=== PATIENT | male | born 1950 | race Caucasian/White ===

== ENCOUNTER 2023-11-09 13:26 | Outpatient (AMB) | payer MEDICARE, SELFPAY ==
[2023-11-09 13:41] VITALS: BP 120/62; PULSE 63; O2SAT 96; BMI 25.0
--- NOTE | 2023-11-09 13:41 | HO.NEPHOV_ITS ---
HPI HPI Comments History of Present Illness Details I had the privilege of seeing Rober in follow-up of his chronic kidney disease as well as renal cysts. He has history of atrial fibrillation and has undergone ablations. In the past he had a calcium score testing of his coronaries, during which the radiologist noted a spot in the lung. It led to more investigations including abdominal CT which showed renal cysts. His serum creatinine has been fairly stable but his paraprotein in the blood has been going high. He has not a diabetic. He has no family history of renal disease, ESRD or renal transplantation. He denies any congestive heart failure symptoms, chest pain, peripheral arterial disease. His blood pressure has been well controlled. Does not take any excessive nonsteroidal anti-inflammatory medications. Has history of prostate cancer in the past and has undergone prostatectomy. Had no other systemic complaints but his is quite concerned about his paraprotein levels going up. He has no new bone or back pain or high calcium levels. [facility] Medical History (Updated 11/17/23 @ 14:00 by Soyn Winkler MD) Paroxysmal A-fib Osteopenia Mixed hyperlipidemia Hypothyroidism Generalized anxiety disorder DJD (degenerative joint disease) Acromioclavicular joint arthritis Renal cyst Chronic kidney disease, stage 3a Surgical History (Updated 11/09/23 @ 13:37 by Jo Lock MA) H/O shoulder surgery H/O prostatectomy H/O knee surgery History of hernia repair S/P ablation of atrial fibrillation History of abdominal surgery Family History (Updated 11/09/23 @ 13:38 by Jo Lock MA) Mother Liver cancer Father Lung cancer Paternal Grandmother Stroke Social History (Updated 11/09/23 @ 13:38 by Jo Lock MA) Alcohol intake: current Patient Tobacco Use Status: Never used Tobacco Vital Signs 11/09/23 13:41 Height 5 ft 11 in Weight 179 lb 4 oz BMI 25.0 BP 120/62 Blood Pressure Location Lt brachial Position Sitting Pulse 63 Pulse Source Pulse Oximeter Pulse Oximetry (%) 96 Oxygen Delivery Method Room Air Physical Exam Vital Signs: Last Vital Signs Pulse 63 11/09/23 13:41 BP 120/62 11/09/23 13:41 Pulse Ox 96 11/09/23 13:41 Oxygen Delivery Method Room Air 11/09/23 13:41 BMI result Body Mass Index 25.0 Const General: comfortable and no acute distress Orientation/consciousness: patient oriented x3 HEENT Head: Yes normocephalic Mouth: Normal oral and palatal mucosa present Eyes EOM: EOMs intact bilaterally Neck Neck: Yes supple Resp Auscultation: clear to auscultation bilaterally Cardio Jugular venous distension: no JVD Rate: regular rate GI Palpation (GI): Soft to palpation Auscultation: normal bowel sounds General: Yes no CVA tenderness Back/Spine/Pelvis Back: no CVA tenderness Skin General skin exam: no rashes or lesions noted Neuro General: patient oriented x3 and moves all extremities Extrem General: Yes no pedal edema Assessment & Plan Assessment & Plan (1) CKD (chronic kidney disease) stage 3, GFR 30-59 ml/min: Code(s): N18.30 - Chronic kidney disease, stage 3 unspecified Qualifiers: Chronic kidney disease stage 3 subtype: stage 3a (GFR 45-59) Qualified Code(s): N18.31 - Chronic kidney disease, stage 3a (2) Renal cyst: Code(s): N28.1 - Cyst of kidney, acquired (3) Paraproteinemia: Code(s): D89.2 - Hypergammaglobulinemia, unspecified Plan He has stage III CKD at baseline. His renal functions have been stable over the last 5 years. He has renal cysts by imaging. 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 He has no family history of polycystic kidney disease. He has no hematuria or proteinuria now. He has paraproteinemia and is quite concerned about it. Living in [place], he wanted to see a machinist helper somewhere in [place]. I took the liberty to refer him to Brie Drake MD in [facility]. I did not make any medication changes today. I plan to image his kidneys after the next visit. He maintains good hydration and does not use excess nonsteroidal anti- inflammatories. All his and his 's questions were answered. Follow-up lab work ordered and follow-up appointment given. Orders: Orders Parathyroid Hormone Intact 11/09/23 N28.1 - Cyst of kidney, acquired, N18.30 - Chronic kidney disease, stage 3 unspecified Calcium 11/09/23 N28.1 - Cyst of kidney, acquired, N18.30 - Chronic kidney disease, stage 3 unspecified Vitamin D 25-OH Total 11/09/23 N28.1 - Cyst of kidney, acquired, N18.30 - Chronic kidney disease, stage 3 unspecified Phosphorus 11/09/23 N28.1 - Cyst of kidney, acquired, N18.30 - Chronic kidney disease, stage 3 unspecified Electrolytes 11/09/23 N28.1 - Cyst of kidney, acquired, N18.30 - Chronic kidney disease, stage 3 unspecified Blood Urea Nitrogen 11/09/23 N28.1 - Cyst of kidney, acquired, N18.30 - Chronic kidney disease, stage 3 unspecified Creatinine 11/09/23 N28.1 - Cyst of kidney, acquired, N18.30 - Chronic kidney disease, stage 3 unspecified Coding Level of Care Code Est Pt Level 4 (42707) Diagnoses Stage 3a chronic kidney disease N18.31 Chronic kidney disease stage 3 subtype: stage 3a (GFR 45-59) Renal cyst N28.1 Paraproteinemia D89.2 Results Reviewed Nephrology Results: No Data to Display
== END 2023-11-09 14:29 | disposition home or self-care (01) ==
PROVIDERS: PCP Physician Assistant Medical; Visit Provider Internal Medicine Nephrology
DX: N18.31 Chronic kidney disease, stage 3a (principal); N28.1 Cyst of kidney, acquired; D89.2 Hypergammaglobulinemia, unspecified
CPT/HCPCS: 99214

== ENCOUNTER → 2023-11-09 13:26 | Outpatient (BNVA) | payer MEDICARE, SELFPAY | PROVIDERS: PCP Physician Assistant Medical; Visit Provider Internal Medicine Nephrology | DX: N18.31 Chronic kidney disease, stage 3a (principal); N28.1 Cyst of kidney, acquired; D89.2 Hypergammaglobulinemia, unspecified | CPT/HCPCS: 99212 ==

== ENCOUNTER 2024-06-18 10:53 | Outpatient (AMB) | payer MEDICARE, SELFPAY ==
--- NOTE | 2024-06-18 11:04 | HO.NEPHOV_ITS ---
Vital Signs 06/18/24 11:05 Height 5 ft 11 in Weight 176 lb 4 oz BMI 24.6 BP 114/70 Blood Pressure Location Lt brachial Position Sitting Pulse 64 Pulse Source Pulse Oximeter Pulse Oximetry (%) 97 Oxygen Delivery Method Room Air Intake Visit Reasons: 8 mon follow up- [facility] Director [employer] Required: No Accompanied by: Spouse Allergies No Known Allergies Allergy (Verified 06/18/24 11:07) HPI Comments Details: I had the privilege of seeing Rober in follow-up of his chronic kidney disease as well as renal cysts. He has history of atrial fibrillation and has undergone ablations. In the past he had a calcium score testing of his coronaries, during which the radiologist noted a spot in the lung. It led to more investigations including abdominal CT which showed renal cysts. His serum creatinine has been fairly stable but his paraprotein in the blood has been going high for which he has seen a fiberglass model maker. He has not a diabetic. He has no family history of renal disease, ESRD or renal transplantation. He denies any congestive heart failure symptoms, chest pain, peripheral arterial disease. His blood pressure has been well controlled. Does not take any excessive nonsteroidal anti- inflammatory medications. Has history of prostate cancer in the past and has undergone prostatectomy. He has no new bone or back pain or high calcium levels. [facility] Medical History (Updated 11/17/23 @ 14:00 by Sony Winkler MD) Paroxysmal A-fib Osteopenia Mixed hyperlipidemia Hypothyroidism Generalized anxiety disorder DJD (degenerative joint disease) Acromioclavicular joint arthritis Renal cyst Chronic kidney disease, stage 3a Surgical History H/O shoulder surgery H/O prostatectomy H/O knee surgery History of hernia repair S/P ablation of atrial fibrillation History of abdominal surgery Family History Mother Liver cancer Father Lung cancer Paternal Grandmother Stroke Social History Alcohol intake: current Patient Tobacco Use Status: Never used Tobacco Physical Exam Vital Signs: Last Vital Signs Pulse 64 06/18/24 11:05 BP 114/70 06/18/24 11:05 Pulse Ox 97 06/18/24 11:05 Oxygen Delivery Method Room Air 06/18/24 11:05 BMI result Body Mass Index 24.6 Const General: comfortable and no acute distress Orientation/consciousness: patient oriented x3 HEENT Head: Yes normocephalic Mouth: Normal oral and palatal mucosa present Eyes EOM: EOMs intact bilaterally Neck Neck: Yes supple Resp Auscultation: clear to auscultation bilaterally Cardio Jugular venous distension: no JVD Rate: regular rate GI Palpation (GI): Soft to palpation Auscultation: normal bowel sounds General: Yes no CVA tenderness Back/Spine/Pelvis Back: no CVA tenderness Skin General skin exam: no rashes or lesions noted Neuro General: patient oriented x3 and moves all extremities Extrem General: Yes no pedal edema Results Reviewed Nephrology Results: No Data to Display Assessment & Plan Assessment & Plan (1) CKD (chronic kidney disease) stage 3, GFR 30-59 ml/min: Code(s): N18.30 - Chronic kidney disease, stage 3 unspecified Category: Medical Qualifiers: Chronic kidney disease stage 3 subtype: stage 3a (GFR 45-59) Qualified Code(s): N18.31 - Chronic kidney disease, stage 3a (2) Renal cyst: Code(s): N28.1 - Cyst of kidney, acquired Category: Medical (3) 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 His renal functions have been stable over the last 5 years. He has renal cysts by imaging. 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 He has no family history of polycystic kidney disease. He has no hematuria or proteinuria now. He is seeing Brie Drake MD in [facility] for paraproteinemia. I did not make any medication changes today. I plan to image his kidneys after the next visit. He maintains good hydration and does not use excess nonsteroidal anti-inflammatories. All his and his 's questions were answered. Follow-up lab work ordered and follow-up appointment given Orders: Orders Calcium Today D89.2 - Hypergammaglobulinemia, unspecified, N18.31 - Chronic kidney disease, stage 3a, N28.1 - Cyst of kidney, acquired Creatinine Today D89.2 - Hypergammaglobulinemia, unspecified, N18.31 - Chronic kidney disease, stage 3a, N28.1 - Cyst of kidney, acquired Blood Urea Nitrogen Today D89.2 - Hypergammaglobulinemia, unspecified, N18.31 - Chronic kidney disease, stage 3a, N28.1 - Cyst of kidney, acquired Electrolytes Today D89.2 - Hypergammaglobulinemia, unspecified, N18.31 - Chronic kidney disease, stage 3a, N28.1 - Cyst of kidney, acquired Coding Level of Care Code Est Pt Level 4 (00329) Diagnoses Stage 3a chronic kidney disease N18.31 Chronic kidney disease stage 3 subtype: stage 3a (GFR 45-59) Renal cyst N28.1 Paraproteinemia D89.2
[2024-06-18 11:05] VITALS: BP 114/70; PULSE 64; O2SAT 97; BMI 24.6
== END 2024-06-18 11:40 | disposition home or self-care (01) ==
PROVIDERS: PCP Physician Assistant Medical; Visit Provider Internal Medicine Nephrology
DX: N18.31 Chronic kidney disease, stage 3a (principal); N28.1 Cyst of kidney, acquired; D89.2 Hypergammaglobulinemia, unspecified
CPT/HCPCS: 99214

== ENCOUNTER → 2024-06-18 10:53 | Outpatient (BNVA) | payer MEDICARE, SELFPAY | PROVIDERS: PCP Physician Assistant Medical; Visit Provider Internal Medicine Nephrology | DX: N18.31 Chronic kidney disease, stage 3a (principal); N28.1 Cyst of kidney, acquired; D89.2 Hypergammaglobulinemia, unspecified | CPT/HCPCS: 99212 ==

== ENCOUNTER 2025-06-17 10:14 | Outpatient (AMB) | payer MEDICARE, SELFPAY ==
--- OUTSIDE RECORDS SUMMARY | 2024-07-30 13:17 | XMS_ITS | Encounter Summary ---
Author Organization [facility] Address [address] [place] [address] Care Team Providers Care Senior Game Developer Name Role Phone Licha Amin Primary Care Provider [phone] Encounter Details Date Type Department Care Team (Late st Contact Info) Description 07/30/2024 1:17 PM EDT Hospital Encounter TH HISTORIC ENCOUNTERS [facility] ONLY Licha Amin PA [address] [place] [id number] Social History Tobacco Use Types Packs/Day Years Used Date Smoking Tobacco: Never Smokeless Tobacco: Never Alcohol Use Standard Drinks/Week Comments Yes 0 (1 standard drink = 0.6 oz pur e alcohol) Sex and Gender Information Value Date Recorded Sex Assigned at Not on file Legal Sex Male 5:49 AM EST Gender Identity Not on file Sexual Orientation Not on file documented as of this encounter Last Filed Vital Signs Vital Sign Reading Time Taken Comments Blood Pressure 146/82 07/30/2024 1:20 PM EDT Pulse 72 07/30/2024 1:20 PM EDT Temperature - - Respiratory Rate - - Oxygen Saturation - - Inhaled Oxygen Concentration - - Weight 81.2 kg (179 lb) 07/30/2024 1:20 PM EDT Height 182.2 cm (5' 11.75 ) 07/20/2022 1:22 PM E DT Body Mass Index 24.45 07/20/2022 1:22 PM EDT documented in this encounter Progress Notes * HANS Alejandre - 07/30/2024 1:15 PM EDT [facility] Colon cancer screening: Colonoscopy 07/16/2021, recheck 3 years (Les) Prostate cancer screening: Total prostatectomy 11/02/2007 Tetanus vaccination: Tdap 11/2021 Vaccinations reviewed BMD: See below ASCVD risk: On statin for primary prevention, followed by cardiology AAA: Negative on 02/11/2015 LDCT: Does not qualify based on smoking history Medicare annual wellness visit: 07/2024 Adv dir: 2022; is HCP, she is aware of his wishes [email or web address] Patient has a living will, he will bring a copy in for the chart Qflo 07/20/2022 0.82 right, 0.91 left 07/26/2023 0.92R, 0.77L Bilateral feet with normal distal capillary refill and no ulceration or signs of skin breakdown; continue aerobic exercise including walking URI-->sinusitis/bronchitis Flonase Zpack if persistent F/U INB Chronic pain B Achilles/ankles No inflammatory symptoms Requested referral to [facility], ordered Ortho INB Chronic cough, post nasal drip Cont f/u ENT Dr Jacobo Cont f/u pulm Russomano (also pulm nodules) H/O paroxysmal atrial fibrillation, h/o ablation x 4 Pure hypercholesterolemia Remote history of syncope CAC -0- at 06/09/2021 LDL 118, will forward to cardiology Dr. Ryan Continue routine follow-up with cardiology ?? CKD 3a Most recent creatinine normal F/U nephrology (Ag) ?? Hypothyroidism TSH??2.78 Continue levothyroxine 50 mcg daily, 2 on Sundays Recheck 1 year ?? Osteopenia* BMD 08/14/2023 RA compared to 03/29/2021 T -0.6 LS spine (previously -1.1) T -2.0 left femoral neck (previously -2.0) FRAX 05/17 Labs done 05/20/2019 (normal): Total testosterone, SPEP, celiac panel, TSH, PTH, phosphorus, vitamin D, 24-hour urine for calcium Repeat PTH vitamin D phosphorus renal function calcium normal 09/2023 History of Actonel use weekly, patient reports at least 2 years of medication (maybe more), discontinued by PCP so he would not stay on it too long Continue calcium, vitamin D, weightbearing exercise Discussed referral to endo, he will consider H/O fatty liver (abdom US NCI 07/20/2021) Normal LFTs No significant etoh Cont diet/exercise, statin, cardiovascular risk factor reduction History of prostate cancer Total prostatectomy 11/02/[address] Neville at [facility], he was discharged and considered cured Hypogammaglobulinemia Elevated serum free light chains Followed by hematology Anxiety disorder MDD, in remission Well-controlled on Lexapro 10 mg daily, continue He has Xanax for rescue medication if he has a panic attack or acute anxiety but he has not needed this Risks of long-term benzodiazepine use were detailed, including sedation, tolerance, overdose, , memory loss, reduced coordination, falls, withdrawal seizures. Osteoarthritis of multiple joints Status post bilateral shoulder surgery and bilateral arthroscopic knee surgery Patient gave up running and has not needed any chronic pain medication. He works out at the gym daily. Chief Complaint: Chief Complaint Patient presents with ??? Annual Exam Labs done ??? Subsequent Preventive Visit Medicare Done today HPI: Rober Duron is a 73 y.o. male. HPI Annual physical Quit smoking 50 years ago ( Renuka) Goes to the gym 5 days a week, does 40+ minutes of cardio plus weights The socialize outdoors with some friends of similar age PSH Cataracts OU Protatectomy, total Afib ablation x 4 Vitals: Vitals: 07/30/24 1320 BP: 146/82 Pulse: 72 SpO2: 97% Weight: 81.2 kg (179 lb) Body mass index is 24.45 kg/m??. Allergies: Allergies Allergen Reactions ??? Sulfa Antibiotics Rash Medications: Current Outpatient Medications Medication Sig Dispense Refill ??? ALPRAZolam (XANAX) 0.5 MG tablet Take 1 tablet (0.5 mg total) by mouth 2 (two) times a day as needed. 30 tablet 0 ??? aspirin 81 MG tablet Take 1 tablet (81 mg total) by mouth daily. ??? atorvastatin (LIPITOR) tablet 20 mg TAKE 1 TABLET BY MOUTH EVERY DAY IN THE EVENING 90 tablet 3 ??? Cyanocobalamin (B-12 PO) Take 2,500 Units by mouth daily. ??? escitalopram (LEXAPRO) tablet 10 mg Take 1 tablet (10 mg total) by mouth daily. For anxiety andmood 90 tablet 3 ??? levothyroxine (SYNTHROID) tablet 50 mcg Take 1 tablet (50 mcg total) by mouth daily. 90 tablet 3 ??? loratadine (CLARITIN) 10 MG tablet Take 1 tablet (10 mg total) by mouth. ??? magnesium (MAGTAB) 84 MG (7MEQ) TBCR Take 1 tablet (84 mg total) by mouth 2 (two) times a day. ??? Probiotic Product (PROBIOTIC-10 PO) Take by mouth. ??? Turmeric 1053 MG TABS Take by mouth. ??? VITAMIN D, ERGOCALCIFEROL, PO Take 2,000 Units by mouth daily. ??? zinc sulfate (ZINCATE) 220 (50 Zn) MG capsule Take 1 capsule (220 mg total) by mouth. ??? azithromycin (Zithromax Z-Roger) 250 MG tablet Take 2 tablets (500 mg) on Day 1, followed by 1 tablet (250 mg) once daily on Days 2 through 5. 6 tablet 0 ??? promethazine-dextromethorphan (PROMETHAZINE-DM) 6.25-15 MG/5ML syrup Take 5 mL by mouth 4 (four) times a day as needed for cough. 118 mL 0 No current facility-administered medications for this visit. Vaccines: Immunization History Administered Date(s) Administered ??? Boostrix (Tdap) 12/01/2021 ??? Covid-19 (Moderna 12+) Bivalent 50mcg/0.5mL 06/29/2022 ??? Covid-19 (Pfizer) Dilution Required 11/24/2020, 12/15/2020, 07/30/2021 ??? Hep A / Hep B 04/15/2016, 05/16/2016, 10/16/2016 Influenza Quad (Fluad) 0.5 mL >65Yrs (AIIV4) 06/20/2020, 06/24/2021 Influenza Quad (High Dose Fluzone) 0.7mL >65Yrs (HD-IIV4) 07/11/2018, 06/11/2019, 06/29/2022, 07/21/2023 ??? Influenza TIV (IM) (inactive) 07/23/2014 Influenza Trivalent (Fluzone High Dose) 0.7 mL (65yrs &>) 07/09/2024 ??? Influenza Trivalent (Fluzone/Afluria) 5.0mL Multi-dose Vial 07/23/2014 ??? Influenza Vaccine, Unspecified formulation 06/16/2020, 07/30/2021, 07/21/2023 ??? Pneumococcal Conjugate PCV13 04/01/2015, 04/01/2015 ??? Pneumococcal Polysaccharide PPSV23 12/26/2006, 07/11/2019 ??? RSV PreF3 (Arexvy) Adjuvant Reconstituted 0.5mL 60+ Yrs 08/07/2023 ??? Shingrix Vaccine (Zoster Recombinant) 06/11/2019, 08/13/2019 ??? Tdap 03/22/2011, 12/01/2021 ??? Zostavax (Zoster Live) 03/22/2011 Problems: Patient Active Problem List Diagnosis SNOMED CT(R) ??? Paroxysmal atrial fibrillation (HCC) PAROXYSMAL ATRIAL FIBRILLATION ??? 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 Acromioclavicular joint arthritis ARTHRITIS OF ACROMIOCLAVICULAR JOINT ??? Chronic left shoulder pain CHRONIC PAIN OF LEFT UPPER LIMB ??? Pure hypercholesterolemia PURE HYPERCHOLESTEROLEMIA ??? Status post AC joint resection HISTORY OF SURGERY ??? H/O prostate cancer HISTORY OF MALIGNANT NEOPLASM OF PROSTATE ??? Adult hypothyroidism HYPOTHYROIDISM ??? Mixed hyperlipidemia MIXED HYPERLIPIDEMIA ??? Recurrent major depressive disorder, in full remission (HCC) RECURRENT MAJOR DEPRESSION IN FULLREMISSION ??? Screening for AAA (abdominal aortic aneurysm) PATIENT ENCOUNTER STATUS ??? History of solitary pulmonary nodule H/O: RESPIRATORY DISEASE ??? Osteopenia of multiple sites OSTEOPENIA ??? MADISON (generalized anxiety disorder) GENERALIZED ANXIETY DISORDER ??? Primary osteoarthritis involving multiple joints DEGENERATIVE JOINT DISEASE INVOLVING MULTIPLE JOINTS ??? Coronary artery calcium score 0 05/2021 HH CORONARY ARTERIOSCLEROSIS EXCLUDED ??? Colonoscopy 07/16/21 HISTORY OF COLONOSCOPY ??? Stage 3a chronic kidney disease (HCC) CHRONIC KIDNEY DISEASE STAGE 3A ??? Hypogammaglobulinemia (HCC) HYPOGAMMAGLOBULINEMIA Past Medical History: Active Ambulatory Problems Diagnosis Date Noted ??? Paroxysmal atrial fibrillation (HCC) 08/25/2015 ??? 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 Acromioclavicular joint arthritis 05/15/2017 ??? Chronic left shoulder pain 05/15/2017 ??? Pure hypercholesterolemia 11/20/2017 ??? Status post AC joint resection 07/16/2018 ??? H/O prostate cancer 05/11/2017 ??? Adult hypothyroidism 01/03/2019 ??? Mixed hyperlipidemia 11/04/2016 ??? Recurrent major depressive disorder, in full remission (HCC) 05/11/2017 ??? Screening for AAA (abdominal aortic aneurysm) 06/13/2018 ??? History of solitary pulmonary nodule 01/03/2019 ??? Osteopenia of multiple sites 01/16/2019 ??? MADISON (generalized anxiety disorder) 07/11/2019 ??? Primary osteoarthritis involving multiple joints 07/02/2020 ??? Coronary artery calcium score 0 05/2021 HH 07/14/2021 ??? Colonoscopy 07/16/21 07/19/2021 ??? Stage 3a chronic kidney disease (HCC) 07/26/2023 ??? Hypogammaglobulinemia (HCC) 07/30/2024 Resolved Ambulatory Problems Diagnosis Date Noted ??? Old peripheral tear of medial meniscus of right knee 09/21/2016 ??? Status post medial meniscectomy of right knee 09/21/2016 ??? History of syncope 11/20/2017 ??? Pre-op evaluation 05/23/2018 ??? Osteopenia of multiple sites 11/04/2016 Past Medical History: Diagnosis Date ??? Anxiety ??? Arm fracture, left ??? Arrhythmia ??? Atrial fibrillation (HCC) ??? Atrial flutter (HCC) ??? Depression ??? Hyperlipidemia ??? Hypothyroidism ??? Lyme disease ??? Osteoarthritis ??? Pneumonia ??? PONV (postoperative nausea and vomiting) ??? Prostate cancer (HCC) Surgical History: Past Surgical History: Procedure Laterality Date ??? ACROMIOPLASTY Left 06/04/2018 Procedure: OPEN ACROMIOPLASTY LEFT SHOULDER; Surgeon: Wu Saravia MD; Location: [facility]; Service: Orthopedics; Laterality: Left; ??? ARRHYTHMIA SURGERY N/A 06/25/2015 Procedure: Comp Eps W/ Cs/La Pac & Record; Surgeon: Renato Kerr MD; Location: [facility] ELECTROP[facility]SIOLOG[facility] (EP); Service: Cardiology; Laterality: N/A; ??? ARRHYTHMIA SURGERY N/A 06/25/2015 Procedure: Intracardiac Electrophysiologic 3-D Mapping; Surgeon: Renato Kerr MD; Location: [facility]OP[facility] (EP); Service: Cardiology; Laterality: N/A; ??? ARRHYTHMIA SURGERY N/A 07/22/2014 Procedure: INTRACARDIAC ECHOCARDIOGRAPHY DURING THERAPEUTIC/DIAGNOSTIC INTERVENTION INCLUDING IMAGING SUPERVISION AND INTERPRETATION; Surgeon: Giacomo Ahuja MD; Location: [facility] ELECTROPHYSIOLOGY (EP) LAB; Service: Cardiology; Laterality: N/A; ??? ARRHYTHMIA SURGERY N/A 07/22/2014 Procedure: INTRACARDIAC ELECTROPHYSIOLOGIC 3-D MAPPING; Surgeon: Giacomo Ahuja MD; Location: [facility] ELECT[facility]OP[facility] (EP) LAB; Service: Cardiology; Laterality: N/A; ??? ARRHYTHMIA SURGERY N/A 07/22/2014 Procedure: PROGRAMMED STIMULATION AND PACING AFTER INTRAVENOUS DRUG INFUSION; Surgeon: Giacomo Ahuja MD; Location: [facility] ELECTROP[facility]OLOG[facility] (EP) LAB; Service: Cardiology; Laterality: N/A; ??? ARRHYTHMIA SURGERY N/A 01/21/2014 Procedure: INTRACARDIAC ECHOCARDIOGRAPHY DURING THERAPEUTIC/DIAGNOSTIC INTERVENTION INCLUDING IMAGING SUPERVISION AND INTERPRETATION; Surgeon: Giacomo Ahuja MD; Location: [facility] E[facility]ROP[facility] (EP) LAB; Service: Cardiology; Laterality: N/A; ??? ARRHYTHMIA SURGERY N/A 01/21/2014 Procedure: INTRACARDIAC ELECTROPHYSIOLOGIC 3-D MAPPING; Surgeon: Giacomo Ahuja MD; Location: [facility] (EP) LAB; Service: Cardiology; Laterality: N/A; ??? ATRIAL ABLATION SURGERY N/A 06/25/2015 Procedure: Complete EP Eval with Flutter; Surgeon: Renato Kerr MD; Location: [facility] (EP); Service: Cardiology; Laterality: N/A; ??? ATRIAL ABLATION SURGERY N/A 07/22/2014 Procedure: COMP EP EVAL INCL TRANSSEPTAL CATHS INSERT & REPO OF MULT ELECT CATHS W/ INDUC OR ATTP INDUC OF AN ARRHY W/ ATRIAL RECORD; Surgeon: Giacomo Ahuja MD; Location: [facility] ELECTROP[facility]SI[facility] (EP) LAB; Service: Cardiology; Laterality: N/A; ??? ATRIAL ABLATION SURGERY N/A 07/22/2014 Procedure: INTRACARDIAC CATHETER ABLATION OF DISCRETE MECHANISM OF ARRHYTHMIA WHICH IS DISTINCT FRROM THE PRIMARY ABLATED MECHANISM; Surgeon: Giacomo Ahuja MD; Location: [facility] ELECTROP[facility] (EP) LAB; Service: Cardiology; Laterality: N/A; ??? ATRIAL ABLATION SURGERY N/A 01/21/2014 Procedure: COMP EP EVAL INCL TRANSSEPTAL CATHS INSERT & REPO OF MULT ELECT CATHS W/ INDUC OR ATTP INDUC OF AN ARRHY W/ ATRIAL RECORD; Surgeon: Giacomo Ahuja MD; Location: [facility] (EP) LAB; Service: Cardiology; Laterality: N/A; ??? ATRIAL ABLATION SURGERY N/A 01/21/2014 Procedure: INTRACARDIAC CATHETER ABLATION OF DISCRETE MECHANISM OF ARRHYTHMIA WHICH IS DISTINCT FRROM THE PRIMARY ABLATED MECHANISM; Surgeon: Giacomo Ahuja MD; Location: [facility] (EP) LAB; Service: Cardiology; Laterality: N/A; ??? COAGULATION TIME; ACTIVATED N/A 07/22/2014 Procedure: COAGULATION TIME ACTIVATED; Surgeon: Giacomo Ahuja MD; Location: [facility] (EP) LAB; Service: Cardiology; Laterality: N/A; ??? COAGULATION TIME; ACTIVATED N/A 01/21/2014 Procedure: COAGULATION TIME ACTIVATED; Surgeon: Giacomo Ahuja MD; Location: [facility] (EP) LAB; Service: Cardiology; Laterality: N/A; ??? COLONOSCOPY January 2010 Normal. ??? COLONOSCOPY N/A 06/14/2016 Procedure: COLONOSCOPY Needs Pediscope Medicare [id number] ; Surgeon: Brennen Ta MD; Location: [facility]; Service: Gastroenterology; Laterality: N/A; Needs Propofol ??? FRACTURE SURGERY Left Secondary to fx L arm as a child ??? INGUINAL HERNIA REPAIR Right ??? INGUINAL HERNIA REPAIR Left 08/26/2019 Procedure: OPEN LEFT INGUINAL HERNIA REPAIR; Surgeon: Masha Nunez MD; Location: [facility]IN [facility]PER[facility] RO[facility]; Service: General; Laterality: Left; ??? KNEE ARTHROSCOPY W/ MENISCAL REPAIR Right 09/12/2016 Procedure: ARTHROSCOPY MENISECTOMY RIGHT KNEE partial medial menisectomy; Surgeon: Wu Saravia MD; Location: [facility]; Service: Orthopedics; Laterality: Right; ??? KNEE SURGERY Bilateral X2 ??? PROSTATE SURGERY date unknown ??? ROTATOR CUFF REPAIR Right ??? SHOULDER ARTHROSCOPY 06/04/2018 Procedure: ARTHROSCOPY SHOULDER W/ DISTAL CLAVICULECTOMY; Surgeon: Wu Saravia MD; Location: [facility]; Service: Orthopedics;; ??? TONSILLECTOMY ??? UPPER GASTROINTESTINAL ENDOSCOPY Family History: Family History Problem Relation Age of Onset ??? Liver cancer Mother ??? Esophageal cancer Father ??? Colon cancer Sister Social History: Social History Socioeconomic History ??? Marital status: Spouse name: Not on file ??? Number of children: Not on file ??? Years of education: Not on file ??? Highest education level: Not on file Occupational History ??? Not on file Tobacco Use ??? Smoking status: Never ??? Smokeless tobacco: Never Substance and Sexual Activity ??? Alcohol use: Yes Comment: social ??? Drug use: No ??? Sexual activity: Not on file Comment: .retired. Other Topics Concern ??? Not on file Social History Narrative ??? Not on file Social Determinants of Health Financial Resource Strain: Not on file Food Insecurity: Not on file Transportation Needs: Not on file Social Connections: Not on file Housing Stability: Not on file Orders Placed This Encounter: No orders of the defined types were placed in this encounter. Review of Systems: Review of Systems Negative except what is listed in plan above Physical Exam: Physical Exam Constitutional: Oriented to person, place, and time. Well-developed and well- nourished. No distress. HENT: Head: Normocephalic and atraumatic. Right Ear: Tympanic membrane and ear canal normal. Left Ear: Tympanic membrane and ear canal normal. Nose: Nose normal. Mouth/Throat: Uvula is midline, oropharynx is clear and moist and mucous membranes are normal. Eyes: Conjunctivae and EOM are normal. Pupils are equal, round, and reactive to light. Neck: No adenopathy or obvious thyroid abnormality Cardiovascular: Normal rate, regular rhythm, normal heart sounds and intact distal pulses. Exam reveals no gallop and no friction rub. No murmur heard. Pulmonary/Chest: Effort normal and breath sounds normal. No respiratory distress. Abdominal: Soft. Bowel sounds are normal. He exhibits No distension and no mass. There is no tenderness. Musculoskeletal: No effusions or deformity Extremities with normal skin, no lesions, normal distal pulses. Neurological: Alert and oriented to person, place, and time. No cranial nerve deficit. Normal muscle tone. Coordination normal. Skin: Skin is warm and dry. No rash noted. Psychiatric: Normal mood and affect. Behavior is normal. Judgment and thought content normal. Labs: Transcribe Orders on 07/10/2024 Component Date Value Ref Range Status Cholesterol, Total 07/24/2024 203 (H) <200 mg/dL Final HDL Cholesterol 07/24/2024 71 > OR = 40 mg/dL Final Triglycerides 07/24/2024 87 <150 mg/dL Final ??? LDL-Cholesterol 07/24/2024 113 (H) mg/dL (calc) Final Comment: Reference range: <100 Desirable range <100 mg/dL for primary prevention; <70 mg/dL for patients with CHD or diabetic patients with > or = 2 CHD risk factors. LDL-C is now calculated using the Ez-Anneliese calculation, which is a validated novel method providing better accuracy than the Friedewald equation in the estimation of LDL-C. Ez SS et al. ARNAUD. 2013;310(19): 4245-8857 (http://education.Milabra.TargetX/faq/VDF125) Chol/HDLC Ratio 07/24/2024 2.9 <5.0 (calc) Final Non HDL Cholesterol 07/24/2024 132 (H) <130 mg/dL (calc) Final Comment: For patients with diabetes plus 1 major ASCVD risk factor, treating to a non-HDL-C goal of <100 mg/dL (LDL-C of <70 mg/dL) is considered a therapeutic option. ??? TSH W/REFLEX TO FT4 07/24/2024 2.78 0.40 - 4.50 mIU/L Final Procedure: Procedures Assessment/Plan: SNOMED CT(R) 1. Encounter for routine adult medical examination PATIENT ENCOUNTER STATUS 2. Encounter for Medicare annual wellness exam PATIENT ENCOUNTER STATUS 3. Stage 3a chronic kidney disease (HCC) CHRONIC KIDNEY DISEASE STAGE 3A 4. Primary osteoarthritis involving multiple joints DEGENERATIVE JOINT DISEASE INVOLVING MULTIPLE JOINTS 5. MADISON (generalized anxiety disorder) GENERALIZED ANXIETY DISORDER 6. History of solitary pulmonary nodule H/O: RESPIRATORY DISEASE 7. Colonoscopy 07/16/21 HISTORY OF COLONOSCOPY 8. H/O prostate cancer HISTORY OF MALIGNANT NEOPLASM OF PROSTATE 9. Adult hypothyroidism HYPOTHYROIDISM 10. Mixed hyperlipidemia MIXED HYPERLIPIDEMIA 11. Recurrent major depressive disorder, in full remission (HCC) RECURRENT MAJOR DEPRESSION IN FULLREMISSION 12. Pure hypercholesterolemia PURE HYPERCHOLESTEROLEMIA 13. Osteopenia of multiple sites OSTEOPENIA 14. Viral respiratory illness VIRAL RESPIRATORY INFECTION 15. Acute cough ACUTE COUGH 16. Sinusitis, unspecified chronicity, unspecified location SINUSITIS 17. Hypogammaglobulinemia (HCC) HYPOGAMMAGLOBULINEMIA Clinical Depression Screening Medicare Screening Date: 07/30/24 Depression screening performed today?: yes Do you want to document the PHQ-9 screening?: No Depression Screen (PHQ2) - Over the past two weeks, how often have you been bothered by any of the following problems? Medicare Screening Date: 07/30/24 Little interest or pleasure in doing things: not at all Feeling down, depressed or hopeless: not at all Initial Depression Screening Score: 0 Over the past two weeks, how often have you been bothered by any of the following problems? (PHQ 2 = positive / complete PHQ9 remaining questions for total depression severity score) Total Score Depression Severity: 0 Fall Risk Assessment Medicare Screening Date: 07/30/24 Has the patient fallen in the last 6 months?: No Does patient have difficulty with walking or balance?: No Does the patient use any assistive devices with ambulation?: No Future fall risk status: negative ADL Scoring: select a point value, 1 or 0 for each category Medicare Screening Date: 07/30/24 Bathing: Independent Dressing: Independent Toileting: Independent Transferring: Independent Continence: Continent Feeding: Independent ADL Total Score: 6 IADL Scoring: select a point value, 1 or 0 for each category according to the description that mostclosely resembles the patient's highest functional level. Medicare Screening Date: 07/30/24 Ability to Use Telephone : Independent Shopping: Independent Food Preparation: Independent Housekeeping: Independent Laundry: Independent Mode of Transportation: Independent Responsibility for Own Medications: Independent Ability to Handle Finances: Independent IADL Total Score:: 8 No orders of the defined types were placed in this encounter. Prescriptions Ordered This Encounter Medications ??? azithromycin (Zithromax Z-Roger) 250 MG tablet Sig: Take 2 tablets (500 mg) on Day 1, followed by 1 tablet (250 mg) once daily on Days 2 through 5. Dispense: 6 tablet Refill: 0 ??? promethazine-dextromethorphan (PROMETHAZINE-DM) 6.25-15 MG/5ML syrup Sig: Take 5 mL by mouth 4 (four) times a day as needed for cough. Dispense: 118 mL Refill: 0 No results found for this or any previous visit (from the past 168 hour(s)). documented in this encounter Plan of Treatment Not on file documented as of this encounter Visit Diagnoses Not on filedocumented in this encounter Care Teams Senior Game Developer Relationship Specialty Start Date End Date Licha Amin PA PCP - General Bike Assembler 03/21/19 documented as of this encounter
--- NOTE | 2025-06-17 10:18 | HO.NEPHOV ---
Vital Signs 06/17/25 10:20 Height 5 ft 11 in Weight 179 lb 4 oz BMI 25.0 BP 122/80 Blood Pressure Location Lt brachial Position Sitting Pulse 63 Pulse Source Pulse Oximeter Pulse Oximetry (%) 96 Oxygen Delivery Method Room Air Intake Visit Reasons: 1 yr follow up-[facility] Magento Developer Required: No Accompanied by: Self / Same As Patient Allergies No Known Allergies Allergy (Verified 06/17/25 10:19) HPI Comments Details: I had the privilege of seeing Rober in follow-up of his chronic kidney disease as well as renal cysts. He has history of atrial fibrillation and has undergone ablations. In the past he had a calcium score testing of his coronaries, during which the radiologist noted a spot in the lung. It led to more investigations including abdominal CT which showed renal cysts. His serum creatinine has been fairly stable but his paraprotein in the blood has been going high for which he has seen a ex chef. He has not a diabetic. He has no family history of renal disease, ESRD or renal transplantation. He denies any congestive heart failure symptoms, chest pain, peripheral arterial disease. His blood pressure has been well controlled. Does not take any excessive nonsteroidal anti-inflammatory medications. Has history of prostate cancer in the past and has undergone prostatectomy. He has no new bone or back pain or high calcium levels. [facility] Medical History (Updated 11/17/23 @ 14:00 by Sony Winkler MD) Paroxysmal A-fib Osteopenia Mixed hyperlipidemia Hypothyroidism Generalized anxiety disorder DJD (degenerative joint disease) Acromioclavicular joint arthritis Renal cyst Chronic kidney disease, stage 3a Surgical History H/O shoulder surgery H/O prostatectomy H/O knee surgery History of hernia repair S/P ablation of atrial fibrillation History of abdominal surgery Family History Mother Liver cancer Father Lung cancer Paternal Grandmother Stroke Social History Alcohol intake: current Patient Tobacco Use Status: Never used Tobacco Review of Systems Const All systems reviewed & are unremarkable except as noted in HPI and below Physical Exam Vital Signs: Last Vital Signs Pulse 63 06/17/25 10:20 BP 122/80 06/17/25 10:20 Pulse Ox 96 06/17/25 10:20 Oxygen Delivery Method Room Air 06/17/25 10:20 BMI result Body Mass Index 25.0 Const General: comfortable and no acute distress Orientation/consciousness: patient oriented x3 HEENT Head: Yes normocephalic Mouth: Normal oral and palatal mucosa present Eyes EOM: EOMs intact bilaterally Neck Neck: Yes supple Resp Auscultation: clear to auscultation bilaterally Cardio Jugular venous distension: no JVD Rate: regular rate GI Palpation (GI): Soft to palpation Auscultation: normal bowel sounds General: Yes no CVA tenderness Back/Spine/Pelvis Back: no CVA tenderness Skin General skin exam: no rashes or lesions noted Neuro General: patient oriented x3 and moves all extremities Extrem General: Yes no pedal edema Assessment & Plan Assessment & Plan (1) Renal cyst: Code(s): N28.1 - Cyst of kidney, acquired Category: Medical (2) CKD (chronic kidney disease) stage 3, GFR 30-59 ml/min: Code(s): N18.30 - Chronic kidney disease, stage 3 unspecified Category: Medical Qualifiers: Chronic kidney disease stage 3 subtype: stage 3a (GFR 45-59) Qualified Code(s): N18.31 - Chronic kidney disease, stage 3a (3) 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 His renal functions have been stable over the last 5 years. He has renal cysts by imaging. 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 He has no family history of polycystic kidney disease. He has no hematuria or proteinuria now. He has seen Brie Drake MD in [facility] for paraproteinemia. I did not make any medication changes today. I plan to image his kidneys after the next visit. He maintains good hydration and does not use excess nonsteroidal anti-inflammatories. All his and his 's questions were answered. Follow-up lab work ordered and follow-up appointment given Orders: Orders Protein Creatinine Ratio, Ur 7 Months D89.2 - Hypergammaglobulinemia, unspecified, N18.31 - Chronic kidney disease, stage 3a, N28.1 - Cyst of kidney, acquired UA and rflx microscopic 7 Months D89.2 - Hypergammaglobulinemia, unspecified, N18.31 - Chronic kidney disease, stage 3a, N28.1 - Cyst of kidney, acquired Creatinine 7 Months D89.2 - Hypergammaglobulinemia, unspecified, N18.31 - Chronic kidney disease, stage 3a, N28.1 - Cyst of kidney, acquired Blood Urea Nitrogen 7 Months D89.2 - Hypergammaglobulinemia, unspecified, N18.31 - Chronic kidney disease, stage 3a, N28.1 - Cyst of kidney, acquired Electrolytes 7 Months D89.2 - Hypergammaglobulinemia, unspecified, N18.31 - Chronic kidney disease, stage 3a, N28.1 - Cyst of kidney, acquired Calcium 7 Months D89.2 - Hypergammaglobulinemia, unspecified, N18.31 - Chronic kidney disease, stage 3a, N28.1 - Cyst of kidney, acquired Coding Level of Care Code Est Pt Level 4 (59131) Diagnoses Renal cyst N28.1 Stage 3a chronic kidney disease N18.31 Chronic kidney disease stage 3 subtype: stage 3a (GFR 45-59) Paraproteinemia D89.2
[2025-06-17 10:20] VITALS: BP 122/80; PULSE 63; O2SAT 96; BMI 25.0
--- OUTSIDE RECORDS SUMMARY | 2025-06-17 11:42 | XMS_ITS | Encounter Summary ---
Author Organization Formerly [facility] Address [address] [place] [address] Care Team Providers Care Dedicated Regional Driver Name Role Phone Margy Ricks MD Primary Care Provider + [phone] Evens Ryan MD Unavailable [phone] Licha Amin Primary Care Provider [phone] Evens Ryan MD Unavailable [phone] Encounter Details Date Type Department Care Team (Late st Contact Info) Description 12/18/2017 Scanned Document [address] [phone] Provider, Generic Social History Tobacco Use Types Packs/Day Years Used Date Smoking Tobacco: Former Smokeless Tobacco: Former Alcohol Use Standard Drinks/Week Comments Yes 0 (1 standard drink = 0.6 oz pur e alcohol) Sex and Gender Information Value Date Recorded Sex Assigned at Male 06/29/2023 10:46 AM EDT Legal Sex Male 6:56 PM EDT Gender Identity Male 06/29/2023 10:46 AM EDT Sexual Orientation Heterosexual (straight) 06/29 10:46 AM EDT documented as of this encounter Plan of Treatment Upcoming Encounters Date Type Department Care Team (Late st Contact Info) Description 09/25/2025 11:00 AM EST Office Visit [facility] [address] [phone] Evens Ryan MD [address] [place] [phone] 03/03/2026 1:45 PM EDT Office Visit [facility] Department of Pulmonology [place] [address] [place] [phone] Nestor Parker MD [address] [phone] documented as of this encounter Visit Diagnoses Not on filedocumented in this encounter Care Teams Dedicated Regional Driver Relationship Specialty Start Date End Date Margy Ricks MD [address] [place] [phone] PCP - General Geriatric Medicine 10/20/16 08/21/19 Licha Amin PA [address] [place] [phone] PCP - General 08/22/19 Evens Ryan MD [address] [place] [address] Plastic Boat Buffer Cardiovascular Disease 04/19/18 06/22/22 Evens Ryan MD [address] [place] [address] Primary Plastic Boat Buffer Cardiovascular Disease 06/23/22 documented as of this encounter
--- OUTSIDE RECORDS SUMMARY | 2025-06-17 11:42 | XMS_ITS | Encounter Summary ---
Author Organization [facility] Address [address] [place] [address] Care Team Providers Care Feather Boner Name Role Phone Margy Ricks MD Primary Care Provider + [phone] Evens Ryan MD Unavailable [phone] Licha Amin Primary Care Provider [phone] Evens Ryan MD Unavailable [phone] Encounter Details Date Type Department Care Team (Late st Contact Info) Description 10/20/2016 Scanned Document [facility] [address] [place], [place] [phone] Margy Ricks MD [address] [place] [address] Social History Tobacco Use Types Packs/Day Years Used Date Smoking Tobacco: Never Assessed Sex and Gender Information Value Date Recorded Sex Assigned at Male 06/29/2023 10:46 AM EDT Legal Sex Male 6:56 PM EDT Gender Identity Male 06/29/2023 10:46 AM EDT Sexual Orientation Heterosexual (straight) 06/29 10:46 AM EDT documented as of this encounter Plan of Treatment Upcoming Encounters Date Type Department Care Team (Late st Contact Info) Description 09/25/2025 11:00 AM EST Office Visit [facility] [place] [address] [phone] Evens Ryan MD [address] [place] [phone] 03/03/2026 1:45 PM EDT Office Visit [facility] Department of Pulmonology [place] [address] [place] [phone] Nestor Parker MD [address] [phone] documented as of this encounter Visit Diagnoses Not on filedocumented in this encounter Care Teams Feather Boner Relationship Specialty Start Date End Date Margy Ricks MD [address] [place] [phone] PCP - General Geriatric Medicine 10/20/16 08/21/19 Licha Amin PA [address] [phone] PCP - General 08/22/19 Evens Ryan MD [address] [place] [address] Twisting Frame Changer Cardiovascular Disease 04/19/18 06/22/22 Evens Ryan MD [address] [place] [address] Primary Twisting Frame Changer Cardiovascular Disease 06/23/22 documented as of this encounter
--- OUTSIDE RECORDS SUMMARY | 2025-06-17 11:42 | XMS_ITS | Encounter Summary ---
Author Organization [facility] Address [address] [place] [address] Care Team Providers Care Outside Operator Name Role Phone Margy Ricks MD Primary Care Provider [phone] Evens Ryan MD Unavailable [phone] Licha Amin Primary Care Provider [phone] Evens Ryan MD Unavailable [phone] Encounter Details Date Type Department Care Team (Late st Contact Info) Description 05/12/2017 Scanned Document [facility] [address] [place], [place] [phone] Mragy Ricks MD [address] [place] [address] Social History Tobacco Use Types Packs/Day Years [...] Description 09/25/2025 11:00 AM EST Office Visit [facility] [place] [address] [phone] Evens Ryan MD [address] [place] [address] 03/03/2026 1:45 PM EDT Office Visit [facility] Department of Pulmonology [place] [address] [place] [phone] Nestor Parker MD [address] [phone] documented as of this encounter Visit Diagnoses Not on filedocumented in this encounter Care Teams Outside Operator Relationship Specialty Start Date End Date Margy Ricks MD [address] [place] [address] PCP - General Geriatric Medicine 10/20/16 08/21/19 Licha Amin PA [address] [place] [address] PCP - General 08/22/19 Evens Ryan MD [address] [place] [address] [employer] Warrant Officer Cardiovascular Disease 04/19/18 06/22/22 Evens Ryan MD [address] [place] [address] Primary [employer] Warrant Officer Cardiovascular Disease 06/23/22 documented as of this encounter
--- OUTSIDE RECORDS SUMMARY | 2025-06-17 11:42 | XMS_ITS | Encounter Summary ---
Author Organization Formerly [facility] Address [address] [place] [address] Care Team Providers Care Camera Maker Name Role Phone Margy Ricks MD Primary Care Provider [phone] Evens Ryan MD Unavailable [phone] Licha Amin Primary Care Provider [phone] Evens Ryan MD Unavailable [phone] Encounter Details Date Type Department Care Team (Late st Contact Info) Description 12/08/2016 Scanned Document [facility] [address] [place] [phone] Margy Ricks MD [address] [place] [address] Social History Tobacco Use Types Packs/Day Years Used Date Smoking Tobacco: Former Alcohol Use Standard Drinks/Week Comments [...] Description 09/25/2025 11:00 AM EST Office Visit [facility] [place] [address] [place] [phone] Evens Ryan MD [address] [place] [address] 03/03/2026 1:45 PM EDT Office Visit [facility] Department of Pulmonology [place] [address] [place] [phone] Nestor Parker MD [address] [address] documented as of this encounter Visit Diagnoses Not on filedocumented in this encounter Care Teams Camera Maker Relationship Specialty Start Date End Date Margy Ricks MD [address] [place] [address] PCP - General Geriatric Medicine 10/20/16 08/21/19 Licha Amin PA [address] [place] [address] PCP - General 08/22/19 Evens Ryan MD [address] [place] [address] Thermograph Operator Cardiovascular Disease 04/19/18 06/22/22 Evens Ryan MD [address] [place] [address] Primary Thermograph Operator Cardiovascular Disease 06/23/22 documented as of this encounter
--- OUTSIDE RECORDS SUMMARY | 2025-06-17 11:42 | XMS_ITS ---
Author Name [facility] Organization Unknown Results Test Name/Text Value Interpretation Date Range Source ESR RBC Qn Westrgrn 28.0 mm/h Above high normal 05/14/2025 - [facility] Vit B12 SerPl-mCnc 847.0 pg/mL Normal 05/14/2025 200 - 11 00 [facility] Folate SerPl-mCnc 15.3 ng/mL Normal 05/14/2025 [facility] AST SerPl-cCnc 15.0 U/L Normal 05/14/2025 10 - 35 [facility] T Albumin/Glob SerPl 1.7 (calc) Normal 05/14/2025 1 - 2.5 [facility] CO2 SerPl-sCnc 27.0 mmol/L Normal 05/14/2025 20 - 32 QU EST Chloride SerPl-sCnc 104.0 mmol/L Normal 05/14/2025 98 - 1 10 [facility] Globulin Ser Calc-mCnc 2.3 g/dL (calc) Normal 05/14/2025 1.9 - 3.7 [facility] Sodium SerPl-sCnc 140.0 mmol/L Normal 05/14/2025 135 - 14 6 [facility] ALP SerPl-cCnc 76.0 U/L Normal 05/14/2025 35 - 144 [facility] Calcium SerPl-mCnc 9.4 mg/dL Normal 05/14/2025 8.6 - 10.3 [facility] BUN/Creat SerPl SEE NOTE: 05/14/2025 6 - [address] ALT SerPl-cCnc 10.0 U/L Normal 05/14/2025 9 - 46 [facility] T Bilirub SerPl-mCnc 0.3 mg/dL Normal 05/14/2025 0.2 - 1.2 [facility] Creat SerPl-mCnc 1.05 mg/dL Normal 05/14/2025 0.7 - 1.28 [facility] eGFRcr SerPlBld CKD-EPI 2020 74.0 mL/min/1.73m2 Normal 05/14/2025 - [facility] Glucose SerPl-mCnc 110.0 mg/dL Normal 05/14/2025 65 - 139 [facility] Albumin SerPl-mCnc 4.0 g/dL Normal 05/14/2025 3.6 - 5.1 [facility] Potassium SerPl-sCnc 4.3 mmol/L Normal 05/14/2025 3.5 - 5 .3 [facility] BUN SerPl-mCnc 20.0 mg/dL Normal 05/14/2025 7 - [address] Prot SerPl-mCnc 6.3 g/dL Normal 05/14/2025 6.1 - 8.[address] TSH SerPl-aCnc 1.47 mIU/L Normal 05/14/2025 0.4 - 4.[address] CK SerPl-cCnc 82.0 U/L Normal 05/14/2025 19 - 278 [facility] CRP SerPl-mCnc 4.5 mg/L Normal 05/14/2025 - 8 [facility] T 25(OH)D3+25(OH)D2 SerPl-mCnc 55.0 ng/mL Normal 05/14/2025 30 - 100 [facility] Hgb Bld-mCnc 12.8 g/dL Below low normal 03/21/2025 13.2 - 17 .1 [facility] Monocytes NFr Bld Auto 9.4 % Normal 03/21/2025 [facility] Platelet # Bld Auto 421.0 Thousand/uL Above high normal 0603/2025 140 - 400 [facility] Lymphocytes NFr Bld Auto 24.6 % Normal 03/21/2025 [facility] RDW RBC Auto 12.7 % Normal 03/21/2025 11 - 15 [facility] Lymphocytes # Bld Auto 1328.0 cells/uL Normal 03/21/2025 850 - 3900 [facility] RBC # Bld Auto 4.51 Million/uL Normal 03/21/2025 4.2 - 5. 8 [facility] WBC # Bld Auto 5.4 Thousand/uL Normal 03/21/2025 3.8 - 10 .8 [facility] Basophils # Bld Auto 32.0 cells/uL Normal 03/21/2025 0 - 200 [facility] MCHC RBC Auto-EntMCnc 31.9 g/dL Below low normal 03/21/2025 32 - 36 [facility] RBC Auto 88.9 fL Normal 03/21/2025 80 - 100 [facility] Neutrophils NFr Bld Auto 63.6 % Normal 03/21/2025 [facility] Neutrophils # Bld Auto 3434.0 cells/uL Normal 03/21/2025 1500 - 7800 [facility] Monocytes # Bld Auto 508.0 cells/uL Normal 03/21/2025 200 - 950 [facility] Hct VFr Bld Auto 40.1 % Normal 03/21/2025 38.5 - 50 QU EST Basophils NFr Bld Auto 0.6 % Normal 03/21/2025 [facility] Eosinophil # Bld Auto 97.0 cells/uL Normal 03/21/2025 15 - 500 [facility] Eosinophil NFr Bld Auto 1.8 % Normal 03/21/2025 [facility] PMV Bld Vincent-Rissa 9.3 fL Normal 03/21/2025 7.5 - 12.5 [facility] MCH RBC Qn Auto 28.4 pg Normal 03/21/2025 27 - [address] Calcium SerPl-mCnc 9.2 mg/dL Normal 03/21/2025 8.6 - 10.3 [facility] Globulin Ser Calc-mCnc 2.8 g/dL (calc) Normal 03/21/2025 1.9 - 3.7 [facility] Albumin/Glob SerPl 1.3 (calc) Normal 03/21/2025 1 - 2.5 [facility] Prot SerPl-mCnc 6.5 g/dL Normal 03/21/2025 6.1 - 8.[address] eGFRcr SerPlBld CKD-EPI 2020 65.0 mL/min/1.73m2 Normal 03/21/2025 - [facility] Chloride SerPl-sCnc 104.0 mmol/L Normal 03/21/2025 98 - 1 10 [facility] BUN SerPl-mCnc 19.0 mg/dL Normal 03/21/2025 7 - [address] Glucose SerPl-mCnc 119.0 mg/dL Above high normal 03/21/2025 65 - 99 [facility] Bilirub SerPl-mCnc 0.3 mg/dL Normal 03/21/2025 0.2 - 1.2 [facility] Sodium SerPl-sCnc 140.0 mmol/L Normal 03/21/2025 135 - 14 6 [facility] ALT SerPl-cCnc 14.0 U/L Normal 03/21/2025 9 - 46 [facility] T AST SerPl-cCnc 15.0 U/L Normal 03/21/2025 10 - 35 [facility] T Potassium SerPl-sCnc 4.9 mmol/L Normal 03/21/2025 3.5 - 5 .3 [facility] BUN/Creat SerPl SEE NOTE: 03/21/2025 6 - [address] ALP SerPl-cCnc 88.0 U/L Normal 03/21/2025 35 - 144 [facility] T Creat SerPl-mCnc 1.17 mg/dL Normal 03/21/2025 0.7 - 1.28 [facility] Albumin SerPl-mCnc 3.7 g/dL Normal 03/21/2025 3.6 - 5.1 [facility] CO2 SerPl-sCnc 26.0 mmol/L Normal 03/21/2025 20 - 32 QU EST IgA SerPl-mCnc 268.0 mg/dL Normal 03/21/2025 70 - 320 QU EST IgG SerPl-mCnc 749.0 mg/dL Normal 03/21/2025 600 - 1540 Q [facility] IgM SerPl-mCnc 42.0 mg/dL Below low normal 03/21/2025 50 - 3 00 [facility] Lambda LC Free SerPl-mCnc 8.6 mg/L Normal 03/21/2025 5.7 - 26.3 [facility] [place] LC Free/Lambda Free Ser 1.91 Above high normal 03/21/2025 0.26 - 1.65 [facility] [place] LC Free Ser-mCnc 16.4 mg/L Normal 03/21/2025 3.3 - 19.4 [facility] Interpretation SerPl ANGELICA-Imp No monoclonal proteins detected 03/21/2025 [facility] Gamma glob SerPl Elph-mCnc 0.7 g/dL Below low normal 03/21/2025 0.8 - 1.7 [facility] Albumin SerPl Elph-mCnc 3.7 g/dL Below low normal 03/21/2025 3.8 - 4.8 [facility] Beta1 Glob SerPl Elph-mCnc 0.5 g/dL Normal 03/21/2025 0.4 - 0.6 [facility] Alpha2 Glob SerPl Elph-mCnc 0.9 g/dL Normal 03/21/2025 0.5 - 0.9 [facility] Prot Pattern SerPl Elph-Imp 03/21/2025 [facility] Prot SerPl-mCnc 6.5 g/dL Normal 03/21/2025 6.1 - 8.[address] Beta2 Glob SerPl Elph-mCnc 0.4 g/dL Normal 03/21/2025 0.2 - 0.5 [facility] Alpha1 Glob SerPl Elph-mCnc 0.3 g/dL Normal 03/21/2025 0.2 - 0.3 [facility] TSH SerPl-aCnc 2.78 mIU/L Normal 07/25/2024 0.4 - 4.[address] HDLc SerPl-mCnc 71.0 mg/dL Normal 07/25/2024 - QU EST NonHDLc SerPl-mCnc 132.0 mg/dL (calc) Above high normal 07/25/2024 - 130 [facility] Cholest/HDLc SerPl 2.9 (calc) Normal 07/25/2024 - 5 [facility] LDLc SerPl Calc-mCnc 113.0 mg/dL (calc) Above high normal 07/25/2024 [facility] Cholest SerPl-mCnc 203.0 mg/dL Above high normal 07/25/2024 - 200 [facility] Trigl SerPl-mCnc 87.0 mg/dL Normal 07/25/2024 - 150 [facility] History of Medication Use Medication Directions Dispensed Refills Start Date End Date Stat us fluticasone-umeclidin ium-vilanterol (TRELEGY ELLIPTA) 200-62.5-25 mcg/act inhaler Inhale 1 puff daily. 11/05/2024 active amoxicillin 875 mg-potassium clavulanate 125 mg tablet Take 1 tablet every 12 hours by oral route with meal(s) for 5 days. 10/21/2024 active azithromycin 250 mg tablet TAKE 2 TABLETS (500 MG) BY ORAL ROUTE ONCE DAILY FOR 1 DAY THEN 1 TABLET (250 MG) BY ORAL ROUTE ONCE DAILY FOR 4 DAYS 10/21/2024 active promethazine-DM 6.25 mg-15 mg/5 mL oral syrup Take 5 mL every 6 hours by oral route as needed, for cough. 10/21/2024 active atorvastatin 20 mg tablet 1 qd 08/16/2024 active azelastine (ASTELIN) 0.1 % nasal spray 1 spray into each nostril 2 (two) times a day. Use in each nostril as directed 10/03/2023 active alprazolam 0.5 mg tablet Take 1 tablet (0.5 mg total) by mouth 2 (two) times a day as needed. 07/26/2023 active methocarbamol (ROBAXIN) 500 MG tablet TAKE 1 TABLET BY MOUTH THREE TIMES A DAY NEEDED FOR MUSCLE SPASMS FOR UP TO 7 DAYS 03/06/2023 3 active escitalopram (LEXAPRO) 10 MG tablet Take 1 tablet (10 mg total) by mouth. 11/14/2020 active Azelastine HCl (ASTEPRO) 0.15 % nasal spray USE 1 SPRAY INTRANASALLY TWICE A DAY NEEDED 10/06/2020 3 active atorvastatin (LIPITOR) 20 MG tablet Take 1 tablet (20 mg total) by mouth every evening. 04/12/2019 active levothyroxine (SYNTHROID, LEVOTHROID) 50 MCG tablet Take 50 mcg by mouth daily. 07/22/2018 3 active benzonatate 100 mg capsule TAKE 1 CAPSULE BY MOUTH THREE TIMES A DAY NEEDED FOR COUGH FOR UP TO 7 DAYS 5 completed Trelegy Ellipta 200 mcg-62.5 mcg-25 mcg powder for inhalation INHALE 1 PUFF DAILY 5 completed Vit 3 5 active zinc sulfate 50 mg zinc (220 mg) capsule Take 1 capsule (220 mg total) by mouth. 5 completed azithromycin 250 mg tablet TAKE 2 TABLETS BY MOUTH TODAY, THEN TAKE 1 TABLET DAILY FOR 4 DAYS DIRECTED 5 completed benzonatate 100 mg capsule TAKE 1 CAPSULE BY MOUTH THREE TIMES A DAY NEEDED FOR COUGH FOR UP TO 7 DAYS 5 completed Paxlovid 300 mg (150 mg x 2)-100 mg tablets in a dose pack TAKE 3 TABLETS BY MOUTH EVERY 12 HOURS FOR 5 DAYS 5 completed promethazine-DM 6.25 mg-15 mg/5 mL oral syrup TAKE 5 MILLILITERS BY MOUTH 4 TIMES A DAY NEEDED FOR COUGH 5 completed amoxicillin 875 mg-potassium clavulanate 125 mg tablet active promethazine-DM 6.25 mg-15 mg/5 mL oral syrup active azithromycin 250 mg tablet active alprazolam 0.25 mg tablet Take 1 tablet 3 times a day by oral route. active aspirin 81 mg tablet Take 1 tablet (81 mg total) by mouth daily. active atorvastatin 20 mg tablet TAKE 1 TABLET BY MOUTH EVERY DAY active azelastine 137 mcg (0.1 %) nasal spray USE 1 SPRAY INTO EACH NOSTRIL 2 (TWO) TIMES A DAY DIRECTED active azelastine 137 mcg (0.1 %) nasal spray 1 SPRAY INTO EACH NOSTRIL 2 (TWO) TIMES A DAY. USE IN EACH NOSTRIL DIRECTED active escitalopram 10 mg tablet TAKE 1 TABLET (10 MG TOTAL) BY MOUTH DAILY. FOR ANXIETY AND MOOD active escitalopram 10 mg tablet Take 1 tablet every day by oral route. active levothyroxine 100 mcg tablet Take 1 tablet every day by oral route. active levothyroxine 50 mcg tablet TAKE 1 TABLET BY MOUTH EVERY DAY active levothyroxine 50 mcg tablet TAKE 1 TABLET BY MOUTH EVERY DAY active loratadine 10 mg tablet Take 1 tablet (10 mg total) by mouth. active magnesium L-lactate ER 84 mg tablet,extended release Take 1 tablet (84 mg total) by mouth 2 (two) times a day. active Trelegy Ellipta 200 mcg-62.5 mcg-25 mcg powder for inhalation INHALE 1 PUFF DAILY active Cholecalciferol (Vitamin D) 50 MCG (2000 UT) tablet Take by mouth. acti ve Allergies Allergen Reaction Severity Comment Documented Date Source Statu s SULFA ANTIBIOTICS RASH/DERMATITIS 11/04/[address] [facility] active SULFA (SULFONAMIDE ANTIBIOTICS) RASH [facility] Problems Problem Status Onset Date Problem Type Date of Resoluti on Source Generalized anxiety disorder active 2019-07-[address] [facility] [facility] History of respiratory disease active 2019-01-[address] [facility] [facility] History of colonoscopy active 2021-07-19 [facility]Act [facility] History of surgery active 2018-07-16 ProblemAct [facility] Chronic kidney disease stage 3A active 2023-07-26 ProblemAct [facility] Arthritis of acromioclavicular joint active 2017-05-15 ProblemAct [facility] Pure hypercholesterolemia active 2017-11-20 ProblemAct [facility] Recurrent major depression in full remission active 2017-05-11 ProblemAct [facility] History of malignant neoplasm of prostate active 2017-05-11 ProblemAct [facility] Hypothyroidism active 2019-01-03 ProblemAct [facility] Paroxysmal atrial fibrillation active 2015-08-25 ProblemAct [facility] Generalized osteoarthritis active 2020-07-02 ProblemAct [facility] Osteopenia active 2019-01-16 ProblemAct [facility] Long-term current use of drug therapy active 2016-01-20 ProblemAct [facility] Chronic pain of left upper limb active 2017-05-15 ProblemAct [facility] Long-term current use of drug therapy active 2016-01-20 ProblemAct [facility] Coronary arteriosclerosis excluded active 2021-07-14 ProblemAct [facility] Mixed hyperlipidemia active 2016-11-04 ProblemAct [facility] Impairment of balance active 2016-11-04 [facility] H/O prostate cancer active 2017-05-11 [facility]Act [facility] Osteopenia active 2016-11-04 ProblemAct [facility] Acute pain of left shoulder active 2017-05-11 [facility]Act [facility] History of knee surgery active 2016-09-21 ProblemAct [facility] Primary osteoarthritis involving multiple joints active 2020-07-02 ProblemAct [facility] History of solitary pulmonary nodule active 2019-01-03 [facility]Act [facility] Mixed hyperlipidemia active 2016-11-04 ProblemAct [facility] Abnormal renal function active 2021-10-19 ProblemAct [facility] Stage 3a chronic kidney disease active 2021-10-19 ProblemAct [facility] Other mcc (current) drug therapy active 2016-01-20 [facility]Act [facility] Hypothyroid active 2016-11-04 ProblemAct [facility] Lung nodule active 2023-04-04 ProblemAct [facility] Multiple renal cysts active 2021-10-19 ProblemAct [facility] Coronary artery disease (CAD) excluded active 2021-07-14 [facility]Act [facility] Ulcer active 2023-04-04 ProblemAct [facility] Recurrent major depressive disorder, in full remission active 2017-05-11 ProblemAct [facility] AF (atrial fibrillation) active 2018-08-23 ProblemAct [facility] Prostate cancer active 2023-04-04 ProblemAct [facility] Paroxysmal atrial fibrillation active 2015-08-25 ProblemAct [facility] [place] (generalized anxiety disorder) active 2019-07-11 ProblemAct [facility] Immunizations Vaccine Date Source Lot Number Status SARS-COV-2 (COVID-19) vaccin e, mRNA, spike protein, LNP, preservative free, 50 mcg/0.5 mL dose 09/30/2024 [facility] [id number] completed influenza, high dose seasona l, preservative-free 07/09/2024 [facility] [id number] completed Respiratory syncytial virus (RSV), vaccine, recombinant, protein subunit RSV prefusion F, adjuvant reconstituted, 0.5 mL, preservative free 08/07/2023 [facility] [id number] completed influenza virus vaccine, uns pecified formulation 07/21/2023 [id number] completed influenza, high-dose seasona l, quadrivalent, preservative free 07/21/2023 [facility] [id number] completed SARS-COV-2 (COVID-19) vaccin e, mRNA, spike protein, LNP, preservative free, nichelle-sucrose, 30 mcg/0.3 mL dose 07/21/2023 [facility] [id number] completed influenza, high-dose seasona l, quadrivalent, preservative free 06/29/2022 [facility] [id number] completed SARS-COV-2 (COVID-19) vaccin e, mRNA, spike protein, LNP, bivalent, preservative free, 50 mcg/0.5 mL dose 06/29/2022 [facility] [id number] completed tetanus toxoid, reduced diph theria toxoid, and acellular pertussis vaccine, adsorbed 12/01/2021 [facility] [id number] completed influenza virus vaccine, uns pecified formulation 07/30/2021 [id number] completed SARS-COV-2 (COVID-19) vaccin e, mRNA, spike protein, LNP, preservative free, 30 mcg/0.3mL dose 07/30/2021 [facility] [id number] completed influenza, seasonal vaccine, quadrivalent, adjuvanted, 0.5 mL dose, preservative free 06/24/2021 [facility] [id number] completed SARS-COV-2 (COVID-19) vaccin e, mRNA, spike protein, LNP, preservative free, 30 mcg/0.3mL dose 12/15/2020 [id number] completed SARS-COV-2 (COVID-19) vaccin e, mRNA, spike protein, LNP, preservative free, 30 mcg/0.3mL dose 11/24/2020 [id number] completed influenza, seasonal vaccine, quadrivalent, adjuvanted, 0.5 mL dose, preservative free 06/20/2020 [facility] [id number] completed influenza virus vaccine, uns pecified formulation 06/16/2020 [facility] completed zoster vaccine subunit 08/13/2019 [facility] co mpleted Zoster Vaccine Live/Attenuated (Zostavax) [facility] pneumococcal polysaccharide vaccine, 23 valent 07/11/2019 [facility] [id number] completed influenza, high-dose seasona l, quadrivalent, preservative free 06/11/2019 [facility] completed zoster vaccine subunit 06/11/2019 [facility] co mpleted Influenza High-Dose Trivalen t,(FLUZONE HIGH-DOSE), Perservative Free IM 0.5 mL 65 years and older 06/11/2019 [facility] [id number] completed Zoster Vaccine Live/Attenuated (Zostavax) 06/11/2019 [facility] completed influenza, high-dose seasona l, quadrivalent, preservative free 07/11/2018 [facility] completed Influenza High-Dose Trivalen t,(FLUZONE HIGH-DOSE), Perservative Free IM 0.5 mL 65 years and older 07/11/2018 [facility] [id number] completed influenza, high dose seasona l, preservative-free 07/23/2017 [facility] [id number] completed hepatitis A and hepatitis B vaccine 10/16/2016 [facility] completed influenza, high dose seasona l, preservative-free 09/02/2016 [facility] [id number] completed hepatitis A and hepatitis B vaccine 05/16/2016 [facility] completed hepatitis A and hepatitis B vaccine 04/15/2016 [facility] completed pneumococcal conjugate vaccine, 13 valent 04/01/2015 [facility] completed influenza, seasonal, injectable 07/23/2014 [facility] [id number] completed influenza, seasonal, injecta ble, preservative free 07/23/2014 [facility] [id number] completed tetanus toxoid, reduced diph theria toxoid, and acellular pertussis vaccine, adsorbed 03/22/2011 [facility] completed zoster vaccine, live 03/22/2011 [facility] comp leted pneumococcal polysaccharide vaccine, 23 valent 12/26/2006 [facility] completed Encounters Encounter Type Encounter Reason Primary Diagnosis Location Date Ambulatory [facility] 05/07/2025 Ambulatory [facility] 03/28/2025 Ambulatory [facility] 02/25/2025 Ambulatory [facility] 11/20/2024 Ambulatory [facility] 11/20/2024 Ambulatory [facility] 11/20/2024 Ambulatory Paroxysmal atrial fibrillation Paroxysmal atrial fibrillation [facility] 11/07/2024 Ambulatory [facility] 11/06/2024 Ambulatory [facility] 11/05/2024 Ambulatory [facility] 10/31/2024 Ambulatory [facility] 10/25/2024 Ambulatory [facility] 10/21/2024 Ambulatory [facility] 10/21/2024 Ambulatory [facility] 10/02/2024 Ambulatory Solitary pulmonary nodule Solitary pulmonary nodule [facility] 07/23/2024 Ambulatory Other specified abnormal immunological findings in serum Other specified abnormal immunological findings in serum [facility] 12/29/2023 Ambulatory Other specified disorders involving the immune mechanism, not elsewhere classified Other specified disorders involving the immune mechanism, not elsewhere classified [facility] 12/08/2023 Ambulatory Chronic rhinitis Chronic rhinitis [facility] 10/03/2023 Ambulatory Paroxysmal atrial fibrillation Paroxysmal atrial fibrillation [facility] 06/29/2023 Ambulatory Solitary pulmona ry nodule [facility] 04/04/2023 Ambulatory Solitary pulmona ry nodule [facility] 04/04/2023 Ambulatory [facility] 01/03/2023 Ambulatory Dyspnea, unspecified [facility] 01/03/2023 Ambulatory Paroxysmal atria l fibrillation [facility] 06/23/2022 Ambulatory Age-related nucl ear cataract, left eye [facility] 12/23/2021 Ambulatory Age-related nucl ear cataract, right eye [facility] 12/09/2021 Ambulatory Paroxysmal atria l fibrillation [facility] 11/25/2021 Care Team Organization Name Specialty Phone Email Start Date End Da te [facility] 02/25/2025 04/27/2025 [facility] 10/24/2024 [facility] 10/19/2024 02/19/2025 [facility] 01/26/202402/13 [facility] 08/18/2023 [facility] 06/23/2022 025 [facility] 11/25/2021 12/23/2021
--- OUTSIDE RECORDS SUMMARY | 2025-06-17 11:42 | XMS_ITS | Encounter Summary ---
Author Organization [facility] Address [address] [place] [address] Care Team Providers Care Flame Brazing Machine Operator Name Role Phone Margy Ricks MD Primary Care Provider [phone] Evens Ryan MD Unavailable [phone] Licha Amin Primary Care Provider [phone] Evens Ryan MD Unavailable [phone] Encounter Details Date Type Department Care Team (Late st Contact Info) Description 03/07/2019 Scanned Document [facility] Heart & Vascular [facility] - Electrophysiology [address] [place] [address] Cardiology, Scan Social History Tobacco Use Types Packs/Day Years Used Date Smoking Tobacco: Former Smokeless Tobacco: Never Comments:quit 50 years ago Alcohol Use Standard Drinks/Week Comments Yes 0 (1 standard drink = 0.6 oz pur e alcohol) rarely AUDIT-C Answer Date Recorded Frequency of Alcohol Consumption Not on file 06/13/2018 Average Number of Drinks Not on file 018 Frequency of Binge Drinking Monthly 05/17 Sex and Gender Information Value Date Recorded Sex Assigned at Male 06/29/2023 10:46 AM EDT Legal Sex Male 6:56 PM EDT Gender Identity Male 06/29/2023 10:46 AM EDT Sexual Orientation Heterosexual (straight) 06/29 10:46 AM EDT documented as of this encounter Plan of Treatment Upcoming Encounters Date Type Department Care Team (Late st Contact Info) Description 09/25/2025 11:00 AM EST Office Visit [facility] Heart & Vascular [place] [address] [place] [phone] Evens Ryna MD [address] [place] [address] 03/03/2026 1:45 PM EDT Office Visit [facility] Department of Pulmonology [place] [address] [place] [phone] Nestor Parker MD [address] [address] documented as of this encounter Visit Diagnoses Not on filedocumented in this encounter Care Teams Flame Brazing Machine Operator Relationship Specialty Start Date End Date Margy Ricks MD [address] [place] [phone] PCP - General Geriatric Medicine 10/20/16 08/21/19 Licha Amin PA [address] [place] [phone] PCP - General 08/22/19 Evens Ryan MD [address] [place] [phone] Threader Cardiovascular Disease 04/19/18 06/22/22 Evens Ryan MD [address] [place] [address] Primary Threader Cardiovascular Disease 06/23/22 documented as of this encounter
--- OUTSIDE RECORDS SUMMARY | 2025-06-17 11:42 | XMS_ITS | Encounter Summary ---
Author Organization [facility] Address [address] [place] [address] Care Team Providers Care Classifier Tender Name Role Phone Margy Ricks MD Primary Care Provider [phone] Evens Ryan MD Unavailable [phone] Licha Amin Primary Care Provider [phone] Evens Ryan MD Unavailable [phone] Encounter Details Date Type Department Care Team (Late st Contact Info) Description 12/07/2016 Scanned Document [facility] [address] [place] [phone] Margy Ricks MD [address] [place] [address] Social History Tobacco Use Types Packs/Day Years [...] Description 09/25/2025 11:00 AM EST Office Visit [facility] Heart & Vascular [place] [address] [place] [phone] Evens Ryan MD [address] [place] [address] 03/03/2026 1:45 PM EDT Office Visit [facility] Department of Pulmonology [place] [address] [place] [phone] Nestor Parker MD [address] [address] documented as of this encounter Visit Diagnoses Not on filedocumented in this encounter Care Teams Classifier Tender Relationship Specialty Start Date End Date Margy Ricks MD [address] [place] [address] PCP - General Geriatric Medicine 10/20/16 08/21/19 Licha Amin PA [address] [place] [address] PCP - General 08/22/19 Evens Ryan MD [address] [place] [address] Retail Merchandiser Technician Cardiovascular Disease 04/19/18 06/22/22 Evens Ryan MD [address] [place] [address] Primary Retail Merchandiser Technician Cardiovascular Disease 06/23/22 documented as of this encounter
--- OUTSIDE RECORDS SUMMARY | 2025-06-17 11:43 | XMS_ITS | Encounter Summary ---
Author Organization [facility] Address [address] [place] [address] Care Team Providers Care Reinforcement Maker Name Role Phone Margy Ricks MD Primary Care Provider [phone] Evens Ryan MD Unavailable [phone] Licha Amin Primary Care Provider [phone] Evens Ryan MD Unavailable [phone] Encounter Details Date Type Department Care Team (Late st Contact Info) Description 10/30/2018 Scanned Document [facility] Heart & Vascular [facility] - Electrophysiology [address] [place] [address] Pulmonary, Scan Social History Tobacco Use Types Packs/Day [...] Description 09/25/2025 11:00 AM EST Office Visit [facility] Heart & V[facility] [place] [address] [place] [phone] Evens Ryan MD [address] [place] [address] 03/03/2026 1:45 PM EDT Office Visit [facility] Department of Pulmonology [place] [address] [place] [phone] Nestor Parker MD [address] [address] documented as of this encounter Visit Diagnoses Not on filedocumented in this encounter Care Teams Reinforcement Maker Relationship Specialty Start Date End Date Margy Ricks MD [address] [place] [phone] PCP - General Geriatric Medicine 10/20/16 08/21/19 Licha Amin PA [address] [phone] PCP - General 08/22/19 Evens Ryan MD [address] [place] [phone] Wire Weaver Cardiovascular Disease 04/19/18 06/22/22 Evens Ryan MD [address] [place] [address] Primary Wire Weaver Cardiovascular Disease 06/23/22 documented as of this encounter
--- OUTSIDE RECORDS SUMMARY | 2025-06-17 11:43 | XMS_ITS | Clinical Summary ---
Author Organization [facility] Address [address] [place] [address] Care Team Providers Care Clinical Psychology Professor Name Role Phone Licha Amin PA-C Primary Care Provider Allergies Active Allergy Reactions Criticality Noted Date Comments Sulfa Antibiotics Rash Low 01/20/2014 Medications Medication Sig Dispensed Refills Start Date End Date Status VITAMIN D, ERGOCALCIFEROL, PO Take 2,000 Units by mouth daily. 0 Active Cyanocobalamin (B-12 PO) Take 2,500 Units by mouth daily. 0 Active aspirin 81 MG tablet Take 1 tablet (81 mg total) by mouth daily. 0 Active magnesium (MAGTAB) 84 MG (7MEQ) TBCR Take 1 tablet (84 mg total) by mouth 2 (two) times a day. 0 Active loratadine (CLARITIN) 10 MG tablet Take 1 tablet (10 mg total) by mouth. 0 Active zinc sulfate (ZINCATE) 220 (50 Zn) MG capsule Take 1 capsule (220 mg total) by mouth. 0 Active Turmeric 1053 MG TABS Take by mouth. 0 Active ALPRAZolam (XANAX) 0.5 MG tablet Take 1 tablet (0.5 mg total) by mouth 2 (two) times a day as needed. 30 tablet 0 07/26/2023 Active atorvastatin (LIPITOR) tablet 20 mg TAKE 1 TABLET BY MOUTH EVERY DAY IN THE EVENING 90 tablet 3 08/24/2023 Active levothyroxine (SYNTHROID) tablet 50 mcg Take 1 tablet (50 mcg total) by mouth daily. 90 tablet 3 11/26/2023 Active escitalopram (LEXAPRO) tablet 10 mg Take 1 tablet (10 mg total) by mouth daily. For anxiety and mood 90 tablet 3 11/28/2023 Active Probiotic Product (PROBIOTIC-10 PO) Take by mouth. 0 Act mariano azithromycin (Zithromax Z-Roger) 250 MG tablet Take 2 tablets (500 mg) on Day 1, followed by 1 tablet (250 mg) once daily on Days 2 through 5. 6 tablet 0 07/30/2024 Active promethazine-dextrom ethorphan (PROMETHAZINE-DM) 6.25-15 MG/5ML syrup Take 5 mL by mouth 4 (four) times a day as needed for cough. 118 mL 0 07/30/2024 Active Active Problems Problem Noted Date Diagnosed Date Hypogammaglobulinemia 07/30/2024 Stage 3a chronic kidney disease 07/26/2023 Colonoscopy 07/16/21 07/19/2021 Overview: Recall 3 years Coronary artery calcium score 0 05/2021 HH 2020 Primary osteoarthritis involving multiple joints 07/02/2020 M[place] (generalized anxiety disorder) 07/11/2019 Osteopenia of multiple sites 01/16/2019 Overview: History of treatment with Actonel for 2 years 04/05/2017 LSS T-0.4, Hip T -1.9 04/11/2019 LSS T -1.1, hip T -1.9 Adult hypothyroidism 01/03/2019 History of solitary pulmonary nodule 01/03/2019 Status post AC joint resection 07/16/2018 Screening for AAA (abdominal aortic aneurysm) Pure hypercholesterolemia 11/20/2017 Acromioclavicular joint arthritis 05/15/2017 Chronic left shoulder pain 05/15/2017 H/O prostate cancer 05/11/2017 Recurrent major depressive disorder, in full rem ission 05/11/2017 Mixed hyperlipidemia 11/04/2016 nursing home current use of antiarrhythmic drug 03/2016 Paroxysmal atrial fibrillation 08/25/2015 Resolved Problems Problem Noted Date Diagnosed Date Resolved Date Pre-op evaluation 05/23/2018 07/14/2021 History of syncope 11/20/2017 Osteopenia of multiple sites 11/04/2016 07/30/2024 Old peripheral tear of media l meniscus of right knee 09/21/2016 07/14/2021 Status post medial meniscectomy of right knee 09/21/20 16 07/14/2021 Immunizations Name Administration Dates Next Due Boostrix (Tdap) 12/01/2021 Covid-19 (Moderna 12+) Bival ent 50mcg/0.5mL 06/29/2022 Covid-19 (Pfizer) Dilution Required 07/30/2021,0 12/15/2020,11/24/2020 Hep A / Hep B 10/16/2016,05/16/2016,04/15/2016 Influenza Quad (Fluad) 0.5 m L >65Yrs (AIIV4) 06/24/2021,06/20/2020 Influenza Quad (High Dose Fl uzone) 0.7mL >65Yrs (HD-IIV4) 07/21/2023,06/29/2022,06/11/2019,07/11 Influenza TIV (IM) (inactive) 07/23/2014 Influenza Trivalent (Fluzone High Dose) 0.7 mL (65yrs &>) 07/09/2024 Influenza Trivalent (Fluzone /Afluria) 5.0mL Multi-dose Vial 07/23/2014 Influenza Vaccine, Unspecifi ed formulation 07/21/2023,07/30/2021,06/16/2020 Pneumococcal Conjugate PCV13 04/01/2015,04/01/20 15 Pneumococcal Polysaccharide PPSV23 07/11/2019, RSV PreF3 (Arexvy) Adjuvant Reconstituted 0.5mL 60+ Yrs 08/07/2023 Shingrix Vaccine (Zoster Recombinant) 08/13/2019 ,06/11/2019 Tdap 12/01/2021,03/22/2011 Zostavax (Zoster Live) 03/22/2011 Family History Medical History Relation Name Comments Esophageal cancer Father Liver cancer Mother Colon cancer Sister Relation Name Status Comments Father Mother Sister Alive Social History Tobacco Use Types Packs/Day Years Used Date Smoking Tobacco: Never Cigarettes 0 Smokeless Tobacco: Never Alcohol Use Standard Drinks/Week Comments Yes 0 (1 standard drink = 0.6 oz pur e alcohol) social Sex and Gender Information Value Date Recorded Sex Assigned at Male 08/12/2019 2:14 PM EDT Gender Identity Male 08/20/2019 4:16 PM EST Sexual Orientation Not on file Job Start Date Occupation Industry Not on file Not on file Not on file Last Filed Vital Signs Vital Sign Reading Time Taken Comments Blood Pressure 146/82 07/30/2024 1:20 PM EDT Pulse 72 07/30/2024 1:20 PM EDT Temperature 36.4 C (97.5 F) 09/26/2023 11:41 AM EST Respiratory Rate 18 08/26/2019 12:13 PM EST Oxygen Saturation 97% 07/30/2024 1:20 PM EDT Inhaled Oxygen Concentration - - Weight 81.2 kg (179 lb) 07/30/2024 1:20 PM EDT Height 182.2 cm (5' 11.75 ) 07/20/2022 1:22 PM E DT Body Mass Index 24.45 07/20/2022 1:22 PM EDT Plan of Treatment Health Maintenance Due Date Last Done Comments COVID-19 Vaccine ( season) 2024 06/29/2022, 07/30/2021, 12/15/2020, Additional history exists Influenza Vaccine (#1) 2025 , 07/21/2023, 06/29/2022, Additional history exists Depression Screening 07/30/2025 07/30/2024, 07/26/2023, 07/20/2022, Additional history exists Fall Risk Assessment 07/30/2025 07/30/2024, 07/26/2023, 07/20/2022, Additional history exists Preventative Health Evaluation 07/30/2025 07/30/2024, 07/26/2023, 07/26/2023, Additional history exists Colon Cancer Screening (Colonoscopy) 06/14/2026 06/14/2016 DTap / Tdap / Td (4 - Td or Tdap) 12/01/2031 12/01/2021, 12/01/2021, 03/22/2011 Hepatitis B Vaccines Completed 10/16/2016, 05/16/2016, 04/15/2016 Hepatitis C Screening Completed 07/11/2019 Pneumococcal Vaccine Completed 07/11/2019, 04/01/2015, 04/01/2015, Additional history exists Shingrix-Zoster Vaccine Completed 08/13/2019, 06/11 RSV Adult > 60+ Yrs or Completed 08/07/2023 RSV Ped < 20 months Aged Out No longe r eligible based on patient's age to complete this topic Medical Devices Implanted Type Area Car Filler Device Identifier Shelf Expiration Date Model / Serial / Lot Mesh Marlex 6x3in Patch Knitted Flat Sheet Polypropylene - [id number] - [id number] Implanted:Qty: 1 on 08/26/2019 by Masha Nunez MD at [facility] Left: Inguinal [employer] 10/12/2023 [id number] / / [id number] Advance Directives For more information, please contact: [phone] Latest Code Status on File Code Status Date Activated Date Inactivated Comments Full Code 06/04/2018 2:50 PM 06/05/2018 9:16 PM This code status was ascertained in the following way: discussion with patient . Code Status History Code Status Date Activated Date Inactivated Comments Full Code 06/14/2016 8:15 AM 06/14/2016 3:30 PM This code status was ascertained in the following way: Not discussed. Full Code 08/25/2015 12:07 PM 08/28/2015 10:33 PM T his code status was ascertained in the following way: discussion with patient. Full Code 06/25/2015 3:26 PM 06/26/2015 4:21 PM This code status was ascertained in the following way: discussion with patient. Full Code 07/22/2014 4:42 PM 07/23/2014 4:11 PM This code status was ascertained in the following way: discussion with patient. Care Teams Clinical Psychology Professor Relationship Specialty Start Date End Date Licha Amin PA-C PCP - General Medical Record Coder 03/21/19
--- OUTSIDE RECORDS SUMMARY | 2025-06-17 11:43 | XMS_ITS | Clinical Summary ---
Author Organization [facility] Address [address] [place] [address] Care Team Providers Care Entry Level Marketing Assistant Name Role Phone Licha Amin Primary Care Provider [phone] Evens Ryan MD Unavailable [phone] Allergies Active Allergy Reactions Criticality Noted Date Comments Sulfa Antibiotics Rash/Dermatitis Medium 11/04/2016 Medications Cyanocobalamin (VITAMIN B 12 PO) Take 5,000 mcg by mouth daily. Active atorvastatin (LIPITOR) 20 MG tabletIndications:M ixed hyperlipidemia Take 1 tablet (20 mg total) by mouth every evening. 30 tablet 9 Active magnesium (MAGTAB) 84 MG (7MEQ) Tab CR Take 1 tablet (84 mg total) by mouth 2 (two) times a day. Active aspirin enteric coated (ECOTRIN LOW STRENGTH) 81 MG EC tablet Take 1 tablet (81 mg total) by mouth daily. Active escitalopram (LEXAPRO) 10 MG tablet Take 1 tablet (10 mg total) by mouth. 1 Active Cholecalciferol (Vitamin D) 50 MCG (2000 UT) tablet Take by mouth. Active levothyroxine (SYNTHROID, LEVOTHROID) 50 MCG tablet Take 1 tablet (50 mcg total) by mouth daily. 8 Active sodium chloride (OCEAN) 0.65 % nasal drops/spray 1 spray into each nostril. 4 Active risedronate (ACTONEL) 35 MG tablet Take 1 tablet (35 mg total) by mouth. Active fluticasone-umeclid inium-vilanterol (TRELEGY ELLIPTA) 200-62.5-25 mcg/act inhalerIndications: Subacute cough Inhale 1 puff daily. 60 each 5 5 Active loratadine (CLARITIN) 10 MG tablet Take 10 mg by mouth. Active azelastine (Azelastine HCl) 0.1 % nasal sprayIndications:Rh initis, unspecified type 1 spray into each nostril 2 (two) times a day. Use in each nostril as directed 90 each 3 5 Active Active Problems Problem Noted Date Diagnosed Date Lung nodule 04/04/2023 04/04/2023 Prostate cancer 04/04/2023 04/04/2023 Ulcer 04/04/2023 04/04/2023 Abnormal renal function 10/19/2021 04/04/20 Multiple renal cysts 10/19/2021 04/04/2023 Stage 3a chronic kidney disease 10/19/2021 04/04/2023 Coronary artery disease (CAD) excluded 04/04/2023 Primary osteoarthritis involving multiple joints 07/02/2020 04/04/2023 [place] (generalized anxiety disorder) 07/11/2019 04/04/2023 History of solitary pulmonary nodule 01/03/2019 04/04/2023 AF (atrial fibrillation) 08/23/2018 Need for hepatitis C screening test 06/13/2018 H/O prostate cancer 05/11/2017 Acute pain of left shoulder 05/11/2017 Recurrent major depressive disorder, in full rem ission 05/11/2017 Hypothyroid 11/04/2016 Osteopenia 11/04/2016 Mixed hyperlipidemia 11/04/2016 Impairment of balance 11/04/2016 History of knee surgery 09/21/2016 Status post medial meniscectomy of right knee Other halfway (current) drug therapy 6 Paroxysmal atrial fibrillation 08/25/2015 Resolved Problems Problem Noted Date Diagnosed Date Resolved Date Screening for AAA (abdominal aortic aneurysm) 06/13/20 18 09/10/2024 Encounters Date Type Department Care Team Description 03/28/2025 2:30 PM EDT Telemedicine [facility] at [address] [address] Brie Drake MD Anemia (Primary Dx) 03/28/2025 Travel 03/18/2025 Nurse Triage [facility] at [facility] [address] [place] [address] Susan Aguilar RN from Last 3 Months Immunizations Immunization Administration Dates Next Due Hep A / Hep B 10/16/2016,05/16/2016,04/15/2016 Influenza High-Dose Quadrivalent,(FLUZONE HIGH-DOSE), Perservative Free IM 0.7 mL 65 years and older 07/21/2023,06/29/2022,06/11/2019,07/11 Influenza High-Dose Trivalen t,(FLUZONE HIGH-DOSE), Perservative Free IM 0.5 mL 65 years and older 07/09/2024,06/11/2019,07/11/2018,07/23,09/02/2016 Influenza Inactivated/Split Preservative Free IM 07/23/2014 Influenza Virus Trivalent Sp lit Vaccine (MDV) IM 07/23/2014 Influenza, Quadrivalent (FLU AD) Adjuvanted Preservative Free IM 65 years and older 06/24/2021,06/20/2020 Influenza, Trivalent (FLUARI X, AFLURIA, FLULAVAL, FLUZONE) Preservative Free IM 07/23/2014 Influenza, Unspecified 07/21/2023,07/30/2021,10/2019 Pneumococcal Conjugate 13-Valent 04/01/2015 Pneumococcal Polysaccharide 23-Valent 07/11/2019 ,12/26/2006 RSV, Recombinant, Protein Obrien bunit RSV Prefusion F (AREXVY), Adjuvant Recon 0.5 mL PF 08/07/2023 Tdap 12/01/2021,03/22/2011 Zoster Vaccine Live/Attenuat ed (Zostavax) 08/13/2019,06/11/2019,03/22/2011 Zoster Vaccine Recombinant (Shingrix) 08/13/2019 ,06/11/2019 Family History Medical History Relation Name Comments Lung cancer Father Liver cancer Mother Colon cancer Sister Relation Name Status Comments Father Mother Sister Social History Tobacco Use Types Packs/Day Years [...] Orientation Heterosexual (straight) 06/29 10:46 AM EDT Last Filed Vital Signs Vital Sign Reading Time Taken Comments Blood Pressure 130/72 02/25/2025 1:23 PM EDT Pulse 67 02/25/2025 1:23 PM EDT Temperature 35.9 C (96.7 F) 12/29/2023 12:52 PM EDT Respiratory Rate 18 08/24/2018 6:03 AM EST Oxygen Saturation 98% 02/25/2025 1:23 PM EDT Inhaled Oxygen Concentration - - Weight 81.6 kg (180 lb) 02/25/2025 1:23 PM EDT Height 177.8 cm (5' 10 ) 11/07/2024 11:03 AM EST Body Mass Index 25.83 11/07/2024 11:03 AM EST Plan of Treatment Upcoming Encounters Date Type Department Care Team (Late st Contact Info) Description 09/25/2025 11:00 AM EST Office Visit [facility] [place] [address] [place] [address] Evens Ryan MD [address] [place] [address] 03/03/2026 1:45 PM EDT Office Visit [facility] Department of Pulmonology [place] [address] [place] [phone] Nestor Parker MD [facility] [address] [id number] Health Maintenance Due Date Last Done Comments Advance Care Planning 1950 Abdominal Aortic Aneurysm (A AA) Screening 2015 Zoster (Shingles) Vaccine (2 of 2) 10/08/2019 08/13/2019, 08/13/2019, 06/11/2019, Additional history exists Colonoscopy 06/06/2021 06/06/2016 (Prev iously Completed) COVID-19 Vaccine (7 - Pfizer risk season) 2025 09/30/2024, 07/21/2023, 06/29/2022, Additional history exists Influenza Vaccine 05/16/2025 07/09/2024, , 07/21/2023, Additional history exists DTaP/Tdap/Td Vaccines (3 - T d or Tdap) 12/01/2031 12/01/2021, 03/22/2011 Hepatitis B Vaccines Completed 10/16/2016, 05/16/2016, 04/15/2016 Hepatitis C Virus Screening Completed 06/14/2018 Pneumococcal Vaccines 50+ Completed 2018, 04/01/2015, 12/26/2006 RSV Vaccine 60 years and old er and Patients Completed 08/07/2023 Medical Devices Implanted Type Area Web Ui Software Engineer Device Identifier Shelf Expiration Date Model / Serial / Lot [id number] Lens Iol +18.5 Matt Mod C 13mm 6mm Posterior Chamber 1 Pc - [id number] Implanted:Qty: 1 on 12/09/2021 by Boogie Schofield MD at [facility] [place] Lens Q1 Labs [facility] CAR [id number] / [id number] / [id number] Lens Iol +18 Matt Mod C 13mm 6mm Posterior Chamber 1 Pc Fld - [id number] Implanted:Qty: 1 on 12/23/2021 by Boogie Schofield MD at [facility] [place], [place] Lens [employer] CAR [id number] / [id number] / Procedures Procedure Name Priority Date/Time Associated Diagnosis Comments IMMUNOFIXATION ELECTROPHORESIS, SERUM Routine 03/19/2025 1:52 PM EDT Elevated serum immunoglobulin free light chain level FREE KAPPA/LAMBDA, W/RATIO, SERUM Routine 03/19/2025 1:52 PM EDT Elevated serum immunoglobulin free light chain level ELECTROPHORESIS, PROTEIN, SERUM (SPEP) Routine 03/19/2025 1:52 PM EDT Elevated serum immunoglobulin free light chain level IMMUNOGLOBULINS, QUANTITATIVE (SALUD) Routine 03/19/2025 1:52 PM EDT Elevated serum immunoglobulin free light chain level COMPREHENSIVE METABOLIC PANEL Routine 03/19/2025 1:52 PM EDT Elevated serum immunoglobulin free light chain level COMPLETE BLOOD COUNT, WITH DIFFERENTIAL Routine 03/19/2025 1:52 PM EDT Elevated serum immunoglobulin free light chain level HEPATITIS C VIRUS (HCV) ANTIBODY Routine 06/14/2018 2:18 PM EDT Need for hepatitis C screening test from Last 3 Months or Most Recently Relevant to Health Maintenance Results * (ABNORMAL) Free Faucett/Lambda, w/Ratio, Serum (03/19/2025 1:52 PM EDT) Pathologist [facility] Free Faucett, Serum 16.4 3.3 - 19.4 mg/L [facility] Free Lambda, Serum 8.6 5.7 - 26.3 mg/L [facility] Free Kappalambda Ratio 1.91(H) 0.26 - 1.65 [facility] Comment: Free kappa/lambda ratio in serum of normal individuals is 0.26-1.65. Excess production of free kappa or lambda chains can alter this ratio. Monoclonal free light chains are found in serum of patients with multiple myeloma, Waldenstrom's macroglobulinemia, mu-heavy chain disease, primary amyloidosis, light chain deposition disease, monoclonal gammopathy of undetermined significance, and lymphoproliferative disorders. Measurement of free light chain concentration in serum is useful for diagnosis, prognosis, monitoring disease activity and following response to therapy of these disorders. Blood Blood specimen / Unknown 03/19/2025 1:52 PM EDT 03/19/2025 1:52 PM EDT us Jackie Prasad PA-C LAB BLOOD ORDERABLES Final Result [facility] [address] [place] [phone] * (ABNORMAL) Complete Blood Count, with Differential (03/19/2025 1:52 PM EDT) White Blood Cell Count 5.4 3.8 - 10.8 Thousand/ uL [facility] Red Blood Cell Count 4.51 4.20 - 5.80 Million/u L [facility] Hemoglobin 12.8(L) 13.2 - 17.1 g/dL [facility] Hematocrit 40.1 38.5 - 50.0 % [facility] MCV 88.9 80.0 - 100.0 fL [facility] MCH 28.4 27.0 - 33.0 pg [facility] MCHC 31.9(L) 32.0 - 36.0 g/dL [facility] Comment: For adults, a slight decrease in the calculated MCHC value (in the range of 30 to 32 g/dL) is most likely not clinically significant; however, it should be interpreted with caution in correlation with other red cell parameters and the patient's clinical condition. RDW 12.7 11.0 - 15.0 % [facility] Platelet Count 421(H) 140 - 400 Thousand/ uL [facility] MPV 9.3 7.5 - 12.5 fL [facility] Abs Neutrophils Auto 3,434 1,500 - 7,800 cells/uL [facility] Abs Lymphocytes Auto 1,328 850 - 3,900 cells/uL [facility] Abs Monocytes Auto 508 200 - 950 cells/uL [facility] Abs Eosinophils Auto 97 15 - 500 cells/uL [facility] Abs Basophils Auto 32 0 - 200 cells/uL [facility] Neutrophils Auto 63.6 % [facility] Lymphocytes Auto 24.6 % [facility] Monocytes Auto 9.4 % [facility] Eosinophils Auto 1.8 % [facility] Basophils Auto 0.6 % [facility] Blood Blood specimen / Unknown 03/19/2025 1:52 PM EDT 03/19/2025 1:52 PM EDT Jackie MAXWELL-C LAB BLOOD ORDERABLES Final Result Performing Organization Address City/[facility]/ZIP Co de Phone Number [facility] [address] [place] [phone] * Immunofixation Electrophoresis, Serum (03/19/2025 1:52 PM EDT) Pathologist [facility] Interpretation No monoclonal proteins detected [facility] Blood Blood specimen / Unknown 03/19/2025 1:52 PM EDT 03/19/2025 1:52 PM EDT Jackie Toledo Shanice MAXWELL-C LAB BLOOD ORDERABLES Final Result Performing Organization Address [facility] Co de Phone Number [facility] [address] [place] [phone] * (ABNORMAL) Immunoglobulins, Quantitative (SALUD) (03/19/2025 1:52 PM EDT) Pathologist [facility] Immunoglobulin A (IgA) 268 70 - 320 mg/dL [facility] Immunoglobulin G (IgG) 749 600 - 1,540 mg/dL [facility] Immunoglobulin M (IgM) 42(L) 50 - 300 mg/dL [facility] Blood Blood specimen / Unknown 03/19/2025 1:52 PM EDT 03/19/2025 1:52 PM EDT Jackie Tre MAXWELL-C LAB BLOOD ORDERABLES Final Result Performing Organization Address [facility]/ZIP Co de Phone Number [facility] [address] [place] [phone] * (ABNORMAL) Electrophoresis, Protein, Serum (SPEP) (03/19/2025 1:52 PM EDT) [facility] Protein, Total 6.5 6.1 - 8.1 g/dL [facility] Albumin 3.7(L) 3.8 - 4.8 g/dL [facility] Alpha 1 Globulin 0.3 0.2 - 0.3 g/dL [facility] Alpha 2 Globulin 0.9 0.5 - 0.9 g/dL [facility] Beta 1 Globulin 0.5 0.4 - 0.6 g/dL [facility] Beta 2 Globulin 0.4 0.2 - 0.5 g/dL [facility] Gamma Globulin 0.7(L) 0.8 - 1.7 g/dL [facility] Interpretation [facility] Comment: Consistent with hypogammaglobulinemia. Serum free light chains or urine immunofixation should be considered if plasma cell dyscrasias are a possible clinical diagnosis. Blood Blood specimen / Unknown 03/19/2025 1:52 PM EDT 03/19/2025 1:52 PM EDT Jackie Prasad PA-C LAB BLOOD ORDERABLES Final Result [facility] [address] [place] [phone] * (ABNORMAL) Comprehensive Metabolic Panel (03/19/2025 1:52 PM EDT) [facility] Glucose 119(H) 65 - 99 mg/dL [facility] Comment: Fasting reference interval For someone without known diabetes, a glucose value between 100 and 125 mg/dL is consistent with prediabetes and should be confirmed with a follow-up test. Blood Urea Nitrogen (BUN) 19 7 - 25 mg/dL [facility] Creatinine 1.17 0.70 - 1.28 mg/dL [facility] Creatinine w/ eGFR 65 > OR = 60 mL/min/1. 73m2 [facility] BUN/Creatinine Ratio SEE NOTE: 6 - 22 (calc) [facility] Comment: Not Reported: BUN and Creatinine are within reference range. Sodium 140 135 - 146 mmol/L [facility] Potassium 4.9 3.5 - 5.3 mmol/L [facility] Chloride 104 98 - 110 mmol/L [facility] CO2 26 20 - 32 mmol/L [facility] Calcium 9.2 8.6 - 10.3 mg/dL [facility] Protein, Total 6.5 6.1 - 8.1 g/dL [facility] Albumin 3.7 3.6 - 5.1 g/dL [facility] Globulin 2.8 1.9 - 3.7 g/dL (calc) [facility] Albumin/Globuli n Ratio 1.3 1.0 - 2.5 (calc) [facility] Bilirubin, Total 0.3 0.2 - 1.2 mg/dL [facility] Alkaline Phosphatase 88 35 - 144 U/L [facility] Aspartate Aminotrans (AST) 15 10 - 35 U/L [facility] Alanine Aminotrans (ALT) 14 9 - 46 U/L [facility] Blood Blood specimen / Unknown 03/19/2025 1:52 PM EDT 03/19/2025 1:52 PM EDT Jackie MAXWELL-Stew LAB BLOOD ORDERABLES Final Result [facility] [address] [place] [phone] * Hepatitis C Virus (HCV) Antibody (06/14/2018 2:18 PM EDT) Hepatitis C Antibody NON-REACTI VE NON-REACT FLAVIA [facility] Hepatitis C Antibody (s/co) 0.00 <1.00 [facility] Blood specimen (specimen) Blood specimen / Unknown 06/14/2018 2:18 PM EDT 06/14/2018 2:18 PM EDT Narrative Resulting Agency Comment Performing Organization Information: Site ID: [id number] Name: [facility] Address: [address] [place] [address], [place] [address] Director: Jean-Paul Shah MD Margy Ricks MD LAB BLOOD ORDERABLES Final Result [facility] [address], [place] [address] from Last 3 Months or Most Recently Relevant to Health Maintenance Insurance Advance Directives * Full Code (Latest Code Status on File) Date Activated Date Inactivated Comments 08/23/2018 3:58 PM 12/09/2021 12:32 PM Care Teams Entry Level Marketing Assistant Relationship Specialty Start Date End Date Licha Amin PA PCP - General 08/22/19 Evens Ryan MD [address] [place] [id number] Primary Lead Technical Writer Cardiovascular Disease 06/23/22
--- OUTSIDE RECORDS SUMMARY | 2025-06-17 11:43 | XMS_ITS | Encounter Summary ---
Author Organization [facility] Address [address] [place] [address] Care Team Providers Care Radio Mechanic Apprentice Name Role Phone Margy Ricks MD Primary Care Provider [phone] Evens Ryan MD Unavailable [phone] Licha Amin Primary Care Provider [phone] Evens Ryan MD Unavailable [phone] Encounter Details Date Type Department Care Team (Late st Contact Info) Description 11/21/2016 Scanned Document [facility] [address] [id number] Margy Ricks MD [address] [place] [address] Social History Tobacco Use Types Packs/Day Years [...] 11:00 AM EST Office Visit [facility] & [facility] [place] [address] [place] [phone] Evens Ryan MD [address] [place] [address] 03/03/2026 1:45 PM EDT Office Visit [facility] Department of Pulmonology [place] [address] [place] [address] Nestor Parker MD [address] [address] documented as of this encounter Visit Diagnoses Not on filedocumented in this encounter Care Teams Radio Mechanic Apprentice Relationship Specialty Start Date End Date Margy Ricks MD [address] [place] [address] PCP - General Geriatric Medicine 10/20/16 08/21/19 Licha Amin PA [address] [place] [address] PCP - General 08/22/19 Evens Ryan MD [address] [place] [address] Armature Varnisher Cardiovascular Disease 04/19/18 06/22/22 Evens Ryan MD [address] [place] [address] Primary Armature Varnisher Cardiovascular Disease 06/23/22 documented as of this encounter
--- OUTSIDE RECORDS SUMMARY | 2025-06-17 11:43 | XMS_ITS ---
Author Organization [facility] Address [address] [place] [address] Care Team Providers Care Hospital Television Rental Clerk Name Role Phone Licha Amin Primary Care Provider [phone] Evens Ryan MD Unavailable [phone] Active Problems Problem Noted Date Diagnosed Date Lung nodule 04/04/2023 04/04/2023 Prostate cancer 04/04/2023 04/04/2023 Ulcer 04/04/2023 04/04/2023 Abnormal renal function 10/19/2021 04/04/20 23 Multiple renal cysts 10/19/2021 04/04/2023 Stage 3a [...] drug therapy 6 Paroxysmal atrial fibrillation 08/25/2015 Current Treatment and Therapy Plans No current plan information found. Past Treatment and Therapy Plans No past plan information found. Lifetime Dose Tracking * Chemical Lifetime Dose Automatic Entry Manual Entr y Radiation 159 mSv 0 mSv 159 mSv Resolved Problems Problem Noted Date Diagnosed Date Resolved Date Screening for AAA (abdominal aortic aneurysm) 06/13/20 18 09/10/2024
--- OUTSIDE RECORDS SUMMARY | 2025-06-17 11:45 | XMS_ITS | Encounter Summary ---
Author Organization [facility] Address [address] [place] [address] Care Team Providers Care Rfid Systems Engineer Name Role Phone Margy Ricks MD Primary Care Provider [phone] Evens Ryan MD Unavailable Licha Amin Primary Care Provider [phone] Evens Ryan MD Unavailable [phone] Encounter Details Date Type Department Care Team (Late st Contact Info) Description 08/15/2018 Telephone [facility] Heart & Vascular [place] - Electrophysiology [address] [place] [address] Oralia Miguel, [facility] [address] [place] [address] Social History Tobacco Use Types Packs/Day Years Used Date Smoking Tobacco: Former Smokeless Tobacco: Former Alcohol Use Standard Drinks/Week Comments Yes 0 (1 standard drink = 0.6 oz pur e alcohol) AUDIT-C Answer Date Recorded Frequency of Alcohol [...] 11:00 AM EST Office Visit [facility] & V[facility] [place] [address] [place] [phone] Evens Ryan MD [address] [place] [address] 03/03/2026 1:45 PM EDT Office Visit [facility] Department of Pulmonology [place] [address] [place] [phone] Nestor Parker MD [address] [address] documented as of this encounter Visit Diagnoses Not on filedocumented in this encounter Care Teams Rfid Systems Engineer Relationship Specialty Start Date End Date Margy Ricks MD [address] [place] [phone] PCP - General Geriatric Medicine 10/20/16 08/21/19 Licha Amin PA [address] [place] [phone] PCP - General 08/22/19 Evens Ryan MD [address] [place] [phone] Flake Cutter Operator Cardiovascular Disease 04/19/18 06/22/22 Evens Ryan MD [address] [place] [address] Primary Flake Cutter Operator Cardiovascular Disease 06/23/22 documented as of this encounter
--- OUTSIDE RECORDS SUMMARY | 2025-06-17 11:45 | XMS_ITS | Encounter Summary ---
Author Organization [facility] Address [address] [place] [address] Care Team Providers Care Machine Maintenance Mechanic Name Role Phone Licha Amin Primary Care Provider [phone] Evens Ryan MD Unavailable [phone] Reason for Visit * Reason Comments Appointment Encounter Details Date Type Department Care Team (Late Contact Info) Description 11/16/[address] [address] Screening, Geriatric Oncology Appointment Social History Tobacco Use Types Packs/Day Years [...] Description 09/25/2025 11:00 AM EST Office Visit [facility] Heart & Vascular [place] [address] [phone] Evens Ryan MD [address] [place] [phone] 03/03/2026 1:45 PM EDT Office Visit [facility] Department of Pulmonology [place] [address] [place] [phone] Nestor Parker MD [address] [address] documented as of this encounter Visit Diagnoses Not on filedocumented in this encounter Care Teams Machine Maintenance Mechanic Relationship Specialty Start Date End Date Licha Amin PA PCP - General 08/22/19 Evens Ryan MD [address] [place] [address] Primary Rn Team Leader Cardiovascular Disease 06/23/22 documented as of this encounter
--- OUTSIDE RECORDS SUMMARY | 2025-06-17 11:45 | XMS_ITS | Encounter Summary ---
Author Organization [facility] Address [address] [place] [address] Care Team Providers Care Superintendent Of Generation Name Role Phone Margy Ricks MD Primary Care Provider [phone] Evens Ryan MD Unavailable [phone] Licha Amin Primary Care Provider [phone] Evens Ryan MD Unavailable [phone] Encounter Details Date Type Department Care Team (Late st Contact Info) Description 09/13/[address] [facility] [address] [place] [address] Provider, Generic Social History Tobacco Use Types [...] [facility] Heart & Vascular [place] [address] [place] [phone] Evens Ryan MD [address] [place] [address] 03/03/2026 1:45 PM EDT Office Visit [facility] Department of Pulmonology [place] [address] [place] [phone] Nestor Parker MD [address] [address] documented as of this encounter Visit Diagnoses Not on filedocumented in this encounter Care Teams Superintendent Of Generation Relationship Specialty Start Date End Date Margy Ricks MD [address] [place] [phone] PCP - General Geriatric Medicine 10/20/16 08/21/19 Licha Amin PA [address] [place] [address] PCP - General 08/22/19 Evens Ryan MD [address] [place] [address] Alliance Director Cardiovascular Disease 04/19/18 06/22/22 Evens Ryan MD [address] [place] [address] Primary Alliance Director Cardiovascular Disease 06/23/22 documented as of this encounter
--- OUTSIDE RECORDS SUMMARY | 2025-06-17 11:45 | XMS_ITS | Encounter Summary ---
Author Organization [facility] Address [address] [place] [address] Care Team Providers Care Social Insurance Adviser Name Role Phone Licha Amin Primary Care Provider [phone] Evens Ryan MD Unavailable [phone] Reason for Visit * Reason Comments Appointment Encounter Details Date Type Department Care Team (Late st Contact Info) Description 11/16/2023 Telephone [facility] [address] [place] [phone] Brie Drake MD [address] [place] [address] Appointment Social History Tobacco Use Types Packs/Day [...] AM EDT documented as of this encounter Miscellaneous Notes * Telephone Encounter - MARTY Tanner - 11/17/2023 1:[address]Shaji Luong office at [phone], waiting on referral to schedule consult visit, patient aware. documented in this encounter Plan of Treatment Upcoming Encounters Date Type Department Care Team (Late st Contact Info) Description 09/25/2025 11:00 AM EST Office Visit [facility] Heart & Vascular [place] [address] [place] [phone] Evens Ryan MD [address] [place] [phone] 03/03/2026 1:45 PM EDT Office Visit [facility] Department of Pulmonology [place] [address] [place] [phone] Nestor Parker MD [address] [address] documented as of this encounter Visit Diagnoses Not on filedocumented in this encounter Care Teams Social Insurance Adviser Relationship Specialty Start Date End Date Licha Amin PA PCP - General 08/22/19 Evens Ryan MD [address] [place], [place] [phone] Primary Chemical Laboratory Chief Cardiovascular Disease 06/23/22 documented as of this encounter
--- OUTSIDE RECORDS SUMMARY | 2025-06-17 11:46 | XMS_ITS | Encounter Summary ---
Author Organization [facility] Address [address] [place] [address] Care Team Providers Care Butt Sawyer Name Role Phone Margy Ricks MD Primary Care Provider [phone] Evens Ryan MD Unavailable [phone] Licha Amin Primary Care Provider [phone] Evens Ryan MD Unavailable [phone] Encounter Details Date Type Department Care Team (Late st Contact Info) Description 07/16/2018 Scanned Document [facility] [address] [place] [address] Provider, Generic Social History Tobacco [...] [facility] [place] [address] [phone] Evens Ryan MD [address] [place] [address] 03/03/2026 1:45 PM EDT Office Visit [facility] Department of Pulmonology [place] [address] [place] [phone] Nestor Parker MD [address] [address] documented as of this encounter Visit Diagnoses Not on filedocumented in this encounter Care Teams Butt Sawyer Relationship Specialty Start Date End Date Margy Ricks MD [address] [place] [address] PCP - General Geriatric Medicine 10/20/16 08/21/19 Licha Amin PA [address] [place] [address] PCP - General 08/22/19 Evens Ryan MD [address] [place] [address] Rental Management Trainee Cardiovascular Disease 04/19/18 06/22/22 Evens Ryan MD [address] [place] [address] Primary Rental Management Trainee Cardiovascular Disease 06/23/22 documented as of this encounter
--- OUTSIDE RECORDS SUMMARY | 2025-06-17 11:46 | XMS_ITS | Encounter Summary ---
Author Organization [facility] Address [address] [place] [address] Care Team Providers Care Vp Strategic Partnerships Name Role Phone Margy Ricks MD Primary Care Provider [phone] Evens Ryan MD Unavailable [phone] Licha Amin Primary Care Provider [phone] Evens Ryan MD Unavailable [phone] Encounter Details Date Type Department Care Team (Late st Contact Info) Description 03/14/2018 Scanned Document [facility]IOR [facility]IMARY [facility]ARE AT [address] [address] Provider, Generic Social History Tobacco Use Types [...] AM EST Office Visit [facility] Heart & Vascular [place] [address] [phone] Evens Ryan MD [address] [place] [phone] 03/03/2026 1:45 PM EDT Office Visit [facility] Department of Pulmonology [place] [address] [place] [phone] Nestor Parker MD [address] [phone] documented as of this encounter Visit Diagnoses Not on filedocumented in this encounter Care Teams Vp Strategic Partnerships Relationship Specialty Start Date End Date Margy Ricks MD [address] [place] [phone] PCP - General Geriatric Medicine 10/20/16 08/21/19 Licha Amin PA [address] [place] [phone] PCP - General 08/22/19 Evens Ryan MD [address] [place] [address] Scow Captain Cardiovascular Disease 04/19/18 06/22/22 Evens Ryan MD [address] [place] [address] Primary Scow Captain Cardiovascular Disease 06/23/22 documented as of this encounter
--- OUTSIDE RECORDS SUMMARY | 2025-06-17 11:46 | XMS_ITS | Encounter Summary ---
Author Organization [facility] Address [address] [place] [address] Care Team Providers Care Accounting Analyst Name Role Phone Margy Ricks MD Primary Care Provider [phone] Evens Ryan MD Unavailable [phone] Lciha Amin Primary Care Provider [phone] Evens Ryan MD Unavailable [phone] Encounter Details Date Type Department Care Team (Late st Contact Info) Description 01/26/2018 Scanned Document [address] [place] [address] Provider, Generic Social History Tobacco Use [...] 09/25/2025 11:00 AM EST Office Visit [facility] Heart & Vascular [place] [address] [place] [phone] Evens Rayn MD [address] [place] [phone] 03/03/2026 1:45 PM EDT Office Visit [facility] Department of Pulmonology [place] [address] [place] [phone] Nestor Parker MD [address] [phone] documented as of this encounter Visit Diagnoses Not on filedocumented in this encounter Care Teams Accounting Analyst Relationship Specialty Start Date End Date Margy Ricks MD [address] [place] [phone] PCP - General Geriatric Medicine 10/20/16 08/21/19 Licha Amin PA [address] [place] [address] PCP - General 08/22/19 Evens Ryan MD [address] [place] [address] Boiler Erector Cardiovascular Disease 04/19/18 06/22/22 Evens Ryan MD [address] [place] [address] Primary Boiler Erector Cardiovascular Disease 06/23/22 documented as of this encounter
--- OUTSIDE RECORDS SUMMARY | 2025-06-17 11:46 | XMS_ITS | Clinical Summary ---
Author Organization [facility] Address [address] [place] [address] Care Team Providers Care Wood Lathe Operator Name Role Phone Licha Amin Primary Care Provider [phone] Surgical History Surgery Date Site/Laterality Comments HERNIA REPAIR Right PROCEDURE:INGUINAL HERNIA REPAIR TONSILLECTOMY PROCEDURE:TONSILLECTOMY COLONOSCOPY January 2010 PROCEDURE:COLONOSCOPY;COMMENT :Normal. PROSTATE SURGERY date unknown PROCEDURE:PROSTATE SURGERY ROTATOR CUFF REPAIR Right PROCEDURE:ROTATOR CUFF REPAIR ACROMIOPLASTY 06/04/2018 Left PROCEDURE:ACROMIOPLASTY;COMME NT:Procedure: OPEN ACROMIOPLASTY LEFT SHOULDER; Surgeon: Wu Saravia MD; Location: [facility] SUR[facility]ERY; Service: Orthopedics; Laterality: Left; KNEE ARTHROSCOPY W/ MENISCAL REPAIR 09/12/2016 Right PROCEDURE:KNEE ARTHROSCOPY W/ MENISCAL REPAIR;COMMENT:Procedure: ARTHROSCOPY MENISECTOMY RIGHT KNEE partial medial menisectomy; Surgeon: Wu Saravia MD; Location: [facility] SURGERY; Service: Orthopedics; Laterality: Right; COLONOSCOPY 06/14/2016 N/A PROCEDURE:COLONOSCOPY;COMMENT :Procedure: COLONOSCOPY Needs Pediscope Medicare [id number] ; Surgeon: Brennen Ta MD; Location: [facility] ENDOSCOPY; Service: Gastroenterology; Laterality: N/A; Needs Propofol ATRIAL ABLATION SURGERY 06/25/2015 N/A PROCEDURE:ATRIAL ABLATION SURGERY;COMMENT:Procedure: Complete EP Eval with Flutter; Surgeon: Renato Kerr MD; Location: [facility] ELECTROPHYSIOLOGY LAB (EP); Service: Cardiology; Laterality: N/A; ARRHYTHMIA SURGERY 06/25/2015 N/A PROCEDURE:ARRHYTHMIA SURGERY;COMMENT:Procedure: Comp Eps W/ Cs/La Pac & Record; Surgeon: Renato Kerr MD; Location: [facility] ELECTROPHYSIOLOGY LAB (EP); Service: Cardiology; Laterality: N/A; ARRHYTHMIA SURGERY 06/25/2015 N/A PROCEDURE:ARRHYTHMIA SURGERY;COMMENT:Procedure: Intracardiac Electrophysiologic 3-D Mapping; Surgeon: Renato Kerr MD; Location: [facility] ELECTROPHYSIOLOGY LAB (EP); Service: Cardiology; Laterality: N/A; ATRIAL ABLATION SURGERY 07/22/2014 N/A PROCEDURE:ATRIAL ABLATION SURGERY;COMMENT:Procedure: COMP EP EVAL INCL TRANSSEPTAL CATHS INSERT & REPO OF MULT ELECT CATHS W/ INDUC OR ATTP INDUC OF AN ARRHY W/ ATRIAL RECORD; Surgeon: Giacomo Ahuja MD; Location: [facility] ELECTROPHYSIOLOGY (EP) LAB; Service: Cardiology; Laterality: N/A; ARRHYTHMIA SURGERY 07/22/2014 N/A PROCEDURE:ARRHYTHMIA SURGERY;COMMENT:Procedure: INTRACARDIAC ECHOCARDIOGRAPHY DURING THERAPEUTIC/DIAGNOSTIC INTERVENTION INCLUDING IMAGING SUPERVISION AND INTERPRETATION; Surgeon: Giacomo Ahuja MD; Location: [facility] ELECTROPHYSIOLOGY (EP) LAB; Service: Cardiology; Laterality: N/A; ARRHYTHMIA SURGERY 07/22/2014 N/A PROCEDURE:ARRHYTHMIA SURGERY;COMMENT:Procedure: INTRACARDIAC ELECTROPHYSIOLOGIC 3-D MAPPING; Surgeon: Giacomo Ahuja MD; Location: [facility] ELECTROPHYSIOLOGY (EP) LAB; Service: Cardiology; Laterality: N/A; OTHER SURGICAL HISTORY 07/22/2014 N/A PROCEDURE:COAGULATION TIME; ACTIVATED;COMMENT:Procedure: COAGULATION TIME ACTIVATED; Surgeon: Giacomo Ahuja MD; Location: [facility] ELECTROPHYSIOLOGY (EP) LAB; Service: Cardiology; Laterality: N/A; ATRIAL ABLATION SURGERY 07/22/2014 N/A PROCEDURE:ATRIAL ABLATION SURGERY;COMMENT:Procedure: INTRACARDIAC CATHETER ABLATION OF DISCRETE MECHANISM OF ARRHYTHMIA WHICH IS DISTINCT FRROM THE PRIMARY ABLATED MECHANISM; Surgeon: Giacomo Ahuja MD; Location: [facility] ELECTROPHYSIOLOGY (EP) LAB; Service: Cardiology; Laterality: N/A; ARRHYTHMIA SURGERY 07/22/2014 N/A PROCEDURE:ARRHYTHMIA SURGERY;COMMENT:Procedure: PROGRAMMED STIMULATION AND PACING AFTER INTRAVENOUS DRUG INFUSION; Surgeon: Giacomo Ahuja MD; Location: [facility] ELECTROPHYSIOLOGY (EP) LAB; Service: Cardiology; Laterality: N/A; ATRIAL ABLATION SURGERY 01/21/2014 N/A PROCEDURE:ATRIAL ABLATION SURGERY;COMMENT:Procedure: COMP EP EVAL INCL TRANSSEPTAL CATHS INSERT & REPO OF MULT ELECT CATHS W/ INDUC OR ATTP INDUC OF AN ARRHY W/ ATRIAL RECORD; Surgeon: Giacomo Ahuja MD; Location: [facility] ELECTROPHYSIOLOGY (EP) LAB; Service: Cardiology; Laterality: N/A; ARRHYTHMIA SURGERY 01/21/2014 N/A PROCEDURE:ARRHYTHMIA SURGERY;COMMENT:Procedure: INTRACARDIAC ECHOCARDIOGRAPHY DURING THERAPEUTIC/DIAGNOSTIC INTERVENTION INCLUDING IMAGING SUPERVISION AND INTERPRETATION; Surgeon: Giacomo Ahuja MD; Location: [facility] ELECTROPHYSIOLOGY (EP) LAB; Service: Cardiology; Laterality: N/A; ARRHYTHMIA SURGERY 01/21/2014 N/A PROCEDURE:ARRHYTHMIA SURGERY;COMMENT:Procedure: INTRACARDIAC ELECTROPHYSIOLOGIC 3-D MAPPING; Surgeon: Giacomo Ahuja MD; Location: [facility] ELECTROPHYSIOLOGY (EP) LAB; Service: Cardiology; Laterality: N/A; OTHER SURGICAL HISTORY 01/21/2014 N/A PROCEDURE:COAGULATION TIME; ACTIVATED;COMMENT:Procedure: COAGULATION TIME ACTIVATED; Surgeon: Giacomo Ahuja MD; Location: [facility] ELECTROPHYSIOLOGY (EP) LAB; Service: Cardiology; Laterality: N/A; ATRIAL ABLATION SURGERY 01/21/2014 N/A PROCEDURE:ATRIAL ABLATION SURGERY;COMMENT:Procedure: INTRACARDIAC CATHETER ABLATION OF DISCRETE MECHANISM OF ARRHYTHMIA WHICH IS DISTINCT FRROM THE PRIMARY ABLATED MECHANISM; Surgeon: Giacomo Ahuja MD; Location: [facility] ELECTROPHYSIOLOGY (EP) LAB; Service: Cardiology; Laterality: N/A; UPPER GASTROINTESTINAL ENDOSCOPY PROCEDURE:UPPER GASTROINTESTINAL ENDOSCOPY KNEE SURGERY Bilateral PROCEDURE:KNEE SURGERY;COMMENT:X2 SHOULDER ARTHROSCOPY 06/04/2018 PROCEDURE:SHOULDER ARTHROSCOPY;COMMENT:Procedure : ARTHROSCOPY SHOULDER W/ DISTAL CLAVICULECTOMY; Surgeon: Wu Saravia MD; Location: [facility] SURGERY; Service: Orthopedics;; FRACTURE SURGERY Left PROCEDURE:FRACTURE SURGERY;COMMENT:Secondary to fx L arm as a child HERNIA REPAIR 08/26/2019 Left PROCEDURE:INGUINAL HERNIA REPAIR;COMMENT:Procedure: OPEN LEFT INGUINAL HERNIA REPAIR; Surgeon: Masha Nunez MD; Location: [facility] MAIN OPERATING ROOM; Service: General; Laterality: Left; Medical History Medical History Date Comments Atrial fibrillation ([facility] V24, [facility] V28) DX:Atrial fibrillation (HCC) Lyme disease DX:Lyme disease Hypothyroidism DX:Hypothyroidis m Hyperlipidemia DX:Hyperlipidemi a Prostate cancer ([facility] V24 , [facility] V28) DX:Prostate cancer (HCC);COM MENT:s/p prostatectomy Osteoarthritis DX:Osteoarthriti s;COMMENT:in lower back Atrial flutter ([facility] V24, [facility] V28) DX:Atrial flutter (HCC) Depression DX:Depression Anxiety DX:Anxiety Arrhythmia DX:Arrhythmia;CO MMENT:afib Pneumonia DX:Pneumonia Arm fracture, left DX:Arm fractu re, left PONV (postoperative nausea a nd vomiting) DX:PONV (postoperative nause a and vomiting);COMMENT:Per pt, Scopolamine patch works well History of syncope 11/20/2017 DX:History of syncope Status post medial meniscect mari of right knee 09/21/2016 DX:Status post medial menisc ectomy of right knee Old peripheral tear of media l meniscus of right knee 09/21/2016 DX:Old peripheral tear of me dial meniscus of right knee Coronary artery disease (CAD) excluded 07/14/2021 DX:Coronary artery disease (CAD) excluded Stage 3a chronic kidney dise ase ([facility] V24, [facility] V28) 07/26/2023 DX:Stage 3a chronic kidney disease (HCC) Family History Medical History Relation Name Comments [...] on file Sexual Orientation Not on file Obstetrics History Last Filed Vital Signs Vital Sign Reading [...] Health Maintenance Due Date Last Done Comments Abdominal Aortic Aneurysm (AAA) Screen 09/22/2022 Colorectal Cancer Screening: Colonoscopy 09/22/2022 Falls Risk Assessment 09/22/2022 Hepatitis C Screening 09/22/2022 Medicare Annual Wellness Visit 09/22/2022 Social Influencers of Health Screening 09/22/2022 Depression Screening 10/16/2024 COVID-19 Vaccine ( season) 2025 06/29/2022, 07/30/2021, 12/15/2020, Additional history exists Influenza Vaccine (#1) 2025 , 07/21/2023, 06/29/2022, Additional history exists Cholesterol Screening (Lipid Panel) 07/24/2029 07/24/2024 DTaP,Tdap,and Td Vaccines (3 - Td or Tdap) 12/01/2031 12/01/2021, 03/22/2011 Hepatitis A Vaccines Aged Out 10/16/2016, 05/16/2016, 04/15/2016 No longer eligible based on patient's age to complete this topic Hepatitis B Vaccines Completed 10/16/2016, 05/16/2016, 04/15/2016 Pneumococcal Vaccine: 50+ Years Completed 07/11/2019, 04/01/2015, 12/26/2006 Zoster Vaccines Completed 08/13/2019, 05/17, 03/22/2011 RSV Immunization Adult Patients Completed 08/07/2023 HIB Vaccines Aged Out No longer eligi ble based on patient's age to complete this topic HPV Vaccines Aged Out No longer eligi ble based on patient's age to complete this topic IPV Vaccines Aged Out No longer eligi ble based on patient's age to complete this topic MMR Vaccines Aged Out No longer eligi ble based on patient's age to complete this topic Meningococcal ACWY Vaccine Aged Out N o longer eligible based on patient's age to complete this topic Meningococcal B Vaccine Aged Out No l onger eligible based on patient's age to complete this topic RSV Immunization Patients Under 20 months Aged Out No longer eligible based on patient's age to complete this topic Varicella Vaccines Aged Out No longer eligible based on patient's age to complete this topic Medical Devices Implanted Type Area Health Benefits Specialist Device Identifier Shelf Expiration Date Model / Serial / Lot Mesh Marlex 6x3in Patch Knitted Flat Sheet Polypropylene - [id number] Implanted:Qty: 1 on 08/26/2019 by Masha Nunez MD Left: Inguinal CR BARD - DAVOL DIV 10/12/2023 [id number] / / [id number] Insurance [employer] MEDICARE Care Teams Wood Lathe Operator Relationship Specialty Start Date End Date Licha Amin PA PCP - General Summer School Coordinator 03/21/19
--- OUTSIDE RECORDS SUMMARY | 2025-06-17 11:46 | XMS_ITS | Clinical Summary ---
Author Organization [facility] Address [address] [facility] [address] [place] [address] Phone Care Team Providers Care Devops Name Role Phone Brennan Licha Primary Care Provider [phone] Medications ALPRAZolam (XANAX) 0.5 MG tablet Take 1 tablet by mouth if needed 1 Active atorvastatin (LIPITOR) 20 MG tablet Take 1 tablet by mouth 1 (one) time each day in the evening 9 Active cyanocobalamin (VITAMIN B-12) 1000 MCG tablet Take 1,000 mcg by mouth daily Active escitalopram (LEXAPRO) 10 MG tablet Take 1 tablet by mouth 1 (one) time each day 1 Active levothyroxine (SYNTHROID, LEVOTHROID) 50 MCG tablet Take 1 tablet by mouth 1 (one) time each day 1 Active magnesium (MAGTAB) 84 MG (7MEQ) CR tablet Take 1 tablet by mouth twice a day Active cholecalciferol (VITAMIN D-3) 125 MCG (5000 UT) capsule Take 1 tablet by mouth daily Active aspirin (ST KEVIN) 81 MG EC tablet Take 81 mg by mouth 1 (one) time each day Active loratadine (CLARITIN) 10 MG tablet Take 10 mg by mouth if needed for allergies Active zinc sulfate (ZINCATE) 220 (50 Zn) MG capsule Take 220 mg by mouth 1 (one) time each day Active Active Problems Problem Noted Date Diagnosed Date Abnormal renal function 10/19/2021 Stage 3a chronic kidney disease 10/19/2021 Multiple renal cysts 10/19/2021 Resolved Problems Problem Noted Date Diagnosed Date Resolved Date History of colonoscopy 07/19/202110/19 Overview (10/19/2021): Recall 3 years Cardiovascular finding 07/14/202110/19 Degenerative joint disease i nvolving multiple joints 07/02/2020 10/19/2021 Generalized anxiety disorder 07/11/2019 10/19/2021 H/O: respiratory disease 01/03/201901/2022 H/O Spinal surgery 07/16/2018 Viral screening status 06/13/201810/19 Pure hypercholesterolemia 11/20/2017 Arthritis of acromioclavicular joint 05/15/2017 10/19/2021 History of malignant neoplasm of prostate 05/11/2017 10/19/2021 Pain in left shoulder 05/11/20172021 Recurrent major depression in full remission 7 10/19/2021 Hypothyroidism 11/04/2016 10/19/2021 Impairment of balance 11/04/20162021 Mixed hyperlipidemia 11/04/2016 022 Osteopenia 11/04/2016 10/19/2021 Overview (10/19/2021): History of treatment with Actonel for 2 years 04/05/2017 LSS T-0.4, Hip T -1.9 04/11/2019 LSS T -1.1, hip T -1.9 History of operative procedure on knee 09/21/2016 10/19/2021 Long-term current use of drug therapy 01/20/2016 10/19/2021 Paroxysmal atrial fibrillation 08/25/2015 10/19/2021 Immunizations Immunization Administration Dates Next Due Hep A / Hep B 10/16/2016,05/16/2016,04/15/2016 Influenza (IM) Preservative Free 07/23/2014 Influenza Vaccine, Quadrivalent, Adjuvanted 06/2021 Pfizer SARS-COV-2 07/30/2021,12/15/2020,11/24/19 21 Pneumococcal Conjugate 13-Valent 04/01/2015 Pneumococcal Polysaccharide 07/11/2019, 7 Shingrix 08/13/2019,06/11/2019 Tdap 12/01/2021,03/22/2011 Zoster 03/22/2011 Family History Medical History Relation Comments Cancer Father Lung Cancer Cancer Mother Liver cancer Stroke Paternal Grandmother Relation Status Comments Father Mother Paternal Grandmother Social History Tobacco Use Types Packs/Day Years Used Date Smoking Tobacco: Never Smokeless Tobacco: Never Tobacco Cessation:Counseling Given: Not Answered Alcohol Use Standard Drinks/Week Comments Yes 0 (1 standard drink = 0.6 oz pur e alcohol) Sex and Gender Information Value Date Recorded Sex Assigned at Not on file Legal Sex Male 2:21 PM EST Gender Identity Not on file Sexual Orientation Not on file Last Filed Vital Signs Vital Sign Reading Time Taken Comments Blood Pressure 114/80 10/27/2022 2:04 PM EST Pulse 70 10/27/2022 2:04 PM EST Temperature - - Respiratory Rate - - Oxygen Saturation - - Inhaled Oxygen Concentration - - Weight 83.8 kg (184 lb 12.8 oz) 10/27/2022 2:04 PM EST Height - - Body Mass Index - - Plan of Treatment Health Maintenance Due Date Last Done Comments Colorectal Cancer Screening: Annual FOBT 1999 Colorectal Cancer Screening: Sigmoidoscopy 1999 Influenza Vaccine (#1) 2025 06/24/2021, 2013 Colorectal Cancer Screening: Colonoscopy 10/19/2031 10/19/2021 Hepatitis B Vaccine Completed 10/16/2016, 05/16/2016, 04/15/2016 Pneumococcal Vaccine: 50+ Years Completed 07/11/2019, 04/01/2015, 12/26/2006 Insurance [facility] Medicare Care Teams Devops Relationship Specialty Start Date End Date Licha Amin PCP - General Physician Supervisor [employer] 08/26/21
--- OUTSIDE RECORDS SUMMARY | 2025-06-17 11:46 | XMS_ITS | Encounter Summary ---
Author Organization [facility] Address [address] [place] [address] Care Team Providers Care Unscrambler Name Role Phone Margy Ricks MD Primary Care Provider [phone] Evens Ryan MD Unavailable [phone] Licha Amin Primary Care Provider [phone] Evens Ryan MD Unavailable [phone] Encounter Details Date Type Department Care Team (Late st Contact Info) Description 06/12/2018 Scanned Document [facility] Heart & Vascular [facility] - Electrophysiology [address] [place] [address] Provider, Generic Social History Tobacco Use Types [...] AM EDT documented as of this encounter Functional Status documented as of this encounter Plan of Treatment Upcoming Encounters Date Type Department Care Team (Late st Contact Info) Description 09/25/2025 11:00 AM EST Office Visit [facility] Heart & Vascular [place] [address] [place] [phone] Evens Ryan MD [address] [place] [address] 03/03/2026 1:45 PM EDT Office Visit [facility] Department of Pulmonology [place] [address] [place] [phone] Nestor Parker MD [address] [id number] documented as of this encounter Visit Diagnoses Not on filedocumented in this encounter Care Teams Unscrambler Relationship Specialty Start Date End Date Margy Ricks MD [address] [place] [id number] PCP - General Geriatric Medicine 10/20/16 08/21/19 Licha Amin PA [address] [place] [id number] PCP - General 08/22/19 Evens Ryan MD [address] [place] [id number] Nuclear Design Engineer Cardiovascular Disease 04/19/18 06/22/22 Evens Ryan MD [address] [place] [address] Primary Nuclear Design Engineer Cardiovascular Disease 06/23/22 documented as of this encounter
--- OUTSIDE RECORDS SUMMARY | 2025-06-17 11:46 | XMS_ITS | Encounter Summary ---
Author Organization [facility] Address [address] [place] [address] Care Team Providers Care Machinist Instructor Name Role Phone Margy Ricks MD Primary Care Provider + [phone] Evens Ryan MD Unavailable [phone] Licha Amin Primary Care Provider [phone] Evens Ryan MD Unavailable [phone] Encounter Details Date Type Department Care Team (Late st Contact Info) Description 05/25/2018 Scanned Document [facility] Heart Vascular [facility] - Electrophysiology [address] [place] [address] Provider, Generic Social History Tobacco [...] Description 09/25/2025 11:00 AM EST Office Visit [facility] Vascular [address] [phone] Evens Ryan MD [address] [place] [phone] 03/03/2026 1:45 PM EDT Office Visit [facility] Department of Pulmonology [place] [address] [place] [phone] Nestor Parker MD [address] [phone] documented as of this encounter Visit Diagnoses Not on filedocumented in this encounter Care Teams Machinist Instructor Relationship Specialty Start Date End Date Margy Ricks MD [address] [place] [id number] PCP - General Geriatric Medicine 10/20/16 08/21/19 Licha Amin PA [address] [place] [address] PCP - General 08/22/19 Evens Ryan MD [address] [place] [address] Pediatric Immunologist Cardiovascular Disease 04/19/18 06/22/22 Evens Ryan MD [address] [place] [address] Primary Pediatric Immunologist Cardiovascular Disease 06/23/22 documented as of this encounter
--- OUTSIDE RECORDS SUMMARY | 2025-06-17 11:46 | XMS_ITS | Encounter Summary ---
Author Organization [facility] Address [address] [place] [address] Care Team Providers Care Tailings Worker Name Role Phone Margy Ricks MD Primary Care Provider [phone] Evens Ryan MD Unavailable [phone] Licha Amin Primary Care Provider [phone] Evens Ryan MD Unavailable [phone] Encounter Details Date Type Department Care Team (Late st Contact Info) Description 06/25/2018 Scanned Document [facility] Heart & Vascular [facility] - Electrophysiology [address] [place] [address] Provider, Generic Social History Tobacco [...] Description 09/25/2025 11:00 AM EST Office Visit [facility] Heart & Vascular [address] [place] [phone] Evens Ryan MD [address] [place] [phone] 03/03/2026 1:45 PM EDT Office Visit [facility] Department of Pulmonology [place] [address] [place] [phone] Nestor Parker MD [address] [id number] documented as of this encounter Procedures Procedure Name Priority Date/Time Associated Diagnosis Comments IMAGING-SCAN 06/25/2018 10:48 AM EDT documented in this encounter Results * IMAGING-SCAN (06/25/2018 10:48 AM EDT) Anatomical Region Laterality Modality Other Narrative 06/25/2018 10:48 AM EDT Ordered by an unspecified provider. us Generic Provider HX AMB PROCEDURES Edited Result - Final documented in this encounter Visit Diagnoses Not on filedocumented in this encounter Care Teams Tailings Worker Relationship Specialty Start Date End Date Margy Ricks MD [address] [place] [phone] PCP - General Geriatric Medicine 10/20/16 08/21/19 Licha Amin PA [address] [place] [id number] PCP - General 08/22/19 Evens Ryan MD [address] [place] [id number] Pick Up Cardiovascular Disease 04/19/18 06/22/22 Evens Ryan MD [address] [place], [place] [phone] Primary Pick Up Cardiovascular Disease 06/23/22 documented as of this encounter
== END 2025-06-17 10:58 | disposition home or self-care (01) ==
LOC: HO.HKAS 10:15
PROVIDERS: PCP Physician Assistant Medical; Visit Provider Internal Medicine Nephrology
DX: N28.1 Cyst of kidney, acquired (principal); N18.31 Chronic kidney disease, stage 3a; D89.2 Hypergammaglobulinemia, unspecified
CPT/HCPCS: 99214

== ENCOUNTER → 2025-06-17 10:14 | Outpatient (BNVA) | payer MEDICARE, SELFPAY | PROVIDERS: PCP Physician Assistant Medical; Visit Provider Internal Medicine Nephrology | DX: N28.1 Cyst of kidney, acquired (principal); N18.31 Chronic kidney disease, stage 3a; D89.2 Hypergammaglobulinemia, unspecified | CPT/HCPCS: 99212 ==